=== PATIENT | female | born 1940 | race Caucasian/White ===

== ENCOUNTER 2018-12-07 03:07 | Inpatient (IN) ==
[2018-12-07] MEDS ORDERED: ICU PROTOCOL FOR HYPERGLYCEMIA PRN (04:59)
[2018-12-07] MEDS: NOREPINEPHRINE BIT INJ 8 MG in DEXTROSE 5% 500 ML IV SCH (05:10)
--- NOTE | 2018-12-07 05:21 | History & Physical Report ---
Date of Service December 07, 2018 Assessment & Plan (1) Hypotension: Patient presently on Levophed 5mcg with adequate MAP. ?etiology - sepsis, hypovolemia, medication effects -IVF - NSS at 100mL/hr x 2 liters -Continue Levo -Follow culture results -Empiric antibiotics - Vanc and Aztreonam (PCN allergic) (2) Multifocal pneumonia: Patient presently with improved respiratory status, adequate oxygenation on Oxymask -?infectious vs pulmonary edema (elevated BNP, opiate use) vs aspiration -Vanc and Aztreonam -Nebs -Procalcitonin -Sputum culture Present on Admission?: Yes (3) UTI (urinary tract infection): Positive UA at OSH. Patient denies urinary complaints -Check UA -Empiric antibiotics as above Present on Admission?: Yes (4) Clostridium difficile diarrhea: Stool + c. diff from OSH. Patient denies diarrhea at home -Check c. diff -PO Vancomycin Present on Admission?: Yes (5) COPD (chronic obstructive pulmonary disease): No SOB or wheeze at present. Initially on BiPAP now on Oxymask -Nebs PRN -Smoking cessation counseling Present on Admission?: Yes (6) Chronic pain: Suspect pain medications/sedative effects as underlying reason for depressed respiratory drive and AMS on initial presentation. Patient on TD Fentanyl, Vicodin and Gabapentin for chronic pain -Hold sedating medications for now -Monitor for withdrawal F/E/N - NSS at 100mL/hr, monitor electrolytes and replete as needed, NPO for now Ppx - low risk for DVT Code - DNR/DNI per discussion with patient Dispo - Admit to MICU Present on Admission?: Yes History of Present Illness Chief Complaint: Sepsis Primary Care Provider: Mike Dietz DO Nubia Dolan is a 78yo C female brought into [facility] for respiratory failure and unresponsiveness. Patient with history of gastric bypass, COPD, chronic pain on high doses of opiates. Per report, respiratory rate was 4 and her pupils were pinpoint. She was administered 2mg of Narcan and then 2mg IV with improvement in respiratory rate. Upon arrival to OSH she was tachycardic, initially hemodynamically stable. CT of the chest suggestive of multifocal pneumonia. CT scan of the head was negative. She was found to have a UTI as well as c. diff. Overall patient states she is feeling well. She does not know why she is in the hospital. She denies fevers, chills, SOB, abdominal pain, nausea, vomiting, diarrhea or constipation OSH Course: Lasix 60mg IV with diuresis of 800mL, Xopenex, Prednisolone 125mg, BiPAP with improvement in mental status, Rocephin 2gm and FLagyl, Vancomycin, Aztreonam. Subsequent development of hypotension and started on Levophed. EKG with ST, no acute ischemic changes Labs from OSH H/H=11.5/36.5, WBC=6.9, UA+, MGW=7383, Lactate=4/2 --> 3.4 Allergies Allergy/AdvReac Type Severity Reaction Status Date / Time diphenhydramine Allergy Mild HIVES Verified 08/07/09 04:05 Penicillins Allergy Mild HIVES Verified 08/07/09 04:05 Sulfa (Sulfonamide Allergy Unknown Verified 08/07/09 04:05 Antibiotics) morphine AdvReac Mild HALLUCINATI Verified 08/07/09 04:05 ONS Home Medications Home Medications Medication Instructions Recorded Confirmed Type Calcium (Caltrate) 600 mg PO DAILY #0 12/18/08 History Cyanocobalamin (Vitamin B-12 Inj) IM MONTHLY #0 12/18/08 History Multivitamin 1 tab PO DAILY #0 12/18/08 History Zolpidem Tartrate (Ambien *) 5 mg PO HS #0 12/19/08 History Docusate Sodium (Colace *) 100 mg PO BID #0 12/22/08 History OXYCODONE/ACETAMINOPHEN 5MG/325MG PO DIRECTED #0 12/22/08 History (PERCOCET 5MG/325MG) Past Med/Surg History Medical History COPD (chronic obstructive pulmonary disease) Neuropathy Peripheral vascular disease Tobacco abuse Vitamin B12 deficiency Surgical History History of cholecystectomy History of gastric bypass History of hip surgery Family History Other Diabetes Social History Current Living Situation: Other Other Information That Helps Us Care for You: No Feels Safe at Home: Yes Smoking Status: Current every day smoker Cigarettes Per Day: 20 Hx Alcohol Use: No Hx Substance Use: Yes Review of Systems Review of Systems: All systems reviewed & are unremarkable except as noted in HPI & below Patient complaining of back pain Physical Exam Physical Exam: General: frail, chronically ill appearing elderly female resting comfortably, NAD, non-toxic in appearance, AA&O to self, location and president Skin: warm, dry, multiple skin tears, right forearm, buttock, stage I sacral HEENT: NC/AT, right eye watering and red, patient complaining of something in it, PERRL, EOMI, anicteric sclera, external ear normal to inspection and nonten hima, nares patent, moist mucus membranes, poor dentition, no oropharyngeal lesions, neck supple, trachea midline, no LAD, no thyromegaly, no JVD Heart: +S1/S2, regular, tachycardic, no m/r/g Lungs: equal air entry bilaterally, no rales/rhonchi/wheezes Abd: +BS, soft, NT/ND, no masses/organomegaly/ascites Ext: warm, 2+ pulses in UE/LE bilaterally, no clubbing/cyanosis, 1+ pitting edema of bilateral LE Neuro: nonfocal, patient AA&O x 2, speech intact, no facial droop, moving all extremities on command with equal strength 5/5 Results & Data Vital Signs (Past 12 Hours) Vital Signs Pulse Resp Pulse Ox 12/07/18 05:10 101 H 16 94 Laboratory Results Lab Results 12/07/18 Range/Units 05:55 WBC 1.59 L (4.8-10.8) K/uL RBC 4.22 (4.2-5.4) M/uL Hgb 13.5 (12.0-16.0) g/dL Hct 40.9 (37-47) % MCV 96.9 (80-100) fL MCH 32.0 (25-34) pg MCHC 33.0 (32-36) g/dL RDW Std Deviation 56.3 H (36.4-46.3) fL RDW Coeff of Yudelka 15.9 H (11.5-14.5) % Plt Count 340 (130-400) K/uL MPV 9.3 (7.4-10.4) fL Diagnostic Findings CXR ordered ECG Additional Comments: EKG ordered Code Status & VTE Plan Code Status FULL VTE Prophylaxis Plan VTE Prophylaxis will be ordered: Yes Critical Care Time Critical Care Time: Yes Total Critical Care Time: 45 (1) Hypotension Hypotension type: unspecified hypotension type Qualified Code(s): I95.9 - Hyp otension, unspecified (2) UTI (urinary tract infection) Urinary tract infection type: site unspecified Hematuria presence: without hematuria Qualified Code(s): N39.0 - Urinary tract infection, site not specified (3) COPD (chronic obstructive pulmonary disease) COPD type: unspecified COPD Qualified Code(s): J44.9 - Chronic obstructive pulmonary disease, unspecified
[2018-12-07 06:05] LABS: Hematocrit (blood only) 40.9 % (37-47); Hemoglobin 13.5 g/dL (12.0-16.0); Mean Corpuscular Volume 96.9 fL (80-100); Mean Platelet Volume 9.3 fL (7.4-10.4); Platelet Count 340 K/uL (130-400); RDW Coefficient of Variation 15.9 % (11.5-14.5); RDW Standard Deviation 56.3 fL (36.4-46.3); Red Blood Count 4.22 M/uL (4.2-5.4); White Blood Count 1.59 K/uL (4.8-10.8)
[2018-12-07] MEDS ORDERED: ALBUT/IPRATROP 3MG/0.5MG NEB 3 ML VIAL NEB PRN (06:20)
[2018-12-07] MEDS ORDERED: ALBUTEROL 0.5% NEB SOLN 2.5 MG/0.5 ML VIAL NEB PRN (06:20)
[2018-12-07] MEDS ORDERED: VANCOMYCIN CONSULT ACTIVE PRN (06:20)
[2018-12-07 06:24] LABS: Albumin Level 1.8 gm/dl (3.4-5.0); BUN Creatinine Ratio 25.6 (10-20); Bilirubin Direct 0.2 mg/dl (0-0.2); Calcium 8.4 mg/dl (8.5-10.1); Creatinine Clr Calc Pharmacy 38.9 ml/min; Est GFR (African American) 67.8; Est GFR (Non-African American) 58.5; Magnesium 1.9 mg/dl (1.8-2.4); Potassium 3.2 mmol/L (3.5-5.1)
--- NOTE | 2018-12-07 06:29 | Critical Care Consultation ---
Date of Consultation December 07, 2018 Assessment & Plan (1) Severe sepsis: Reason Critically Ill: Severe sepsis with hypotension and septic shock with community-acquired pneumonia, multifocal pneumonia PLAN: Neuro: DNR/DNI -Patient alert, patient appears to have waxing and waning capacity Resp: Multifocal pneumonia COPD -Solu-Medrol for severe community-acquired pneumonia x5 days CV: Hypotension -Wean vasopressors as able Elevated troponin -Suspect secondary to sepsis Fluids/Renal: Lactic acid acidosis -Thiamine supplementation ID: Severe community-acquired pneumonia Severe sepsis with septic shock -Aztreonam secondary to penicillin allergy -MRSA swab negative discontinue vancomycin -QTC within normal limits azithromycin for atypical coverage GI/Nutrition: N.p.o. Heme: Leukopenia -Suspect secondary to septic process DVT prophylaxis: Heparin 5000 twice daily Endocrine: ICU hyperglycemia protocol Vascular access: Poor vascular access, patient refuses central venous access Code Status: DNR/DNI, also declining advanced vascular access, patient appears to have capacity understands gravity her decisions, understands clinical prognosis, thoughtful and her reasons for declining she does not want heroic measures undertaken. I have personally spent 40 minutes of critical care time in the direct management of this patient. This is a life/limb threatening event. This includes time spent evaluating patient, direct bedside care, chart review, placing orders, interpretation of diagnostic studies, discussion with consultants, patient, and/or family members regarding treatment decisions, as well as other required patient management activities. This time is exclusive of all separately billable procedures, and teaching time and separate from and in addition to any other critical care service time. Present on Admission?: Yes (2) DNR (do not resuscitate): (3) Chronic pain: (4) COPD (chronic obstructive pulmonary disease): (5) Clostridium difficile diarrhea: (6) UTI (urinary tract infection): (7) Multifocal pneumonia: (8) Marijuana dependence: Supervising Physician Co-Signing Physician Notes Dr. Bloom was resident physician during care of patient. I separately evaluated patient for cheung portions of the history and the exam. I was present during the critical portion of medical decision making, and I discussed the case with the resident. I generally agree with the findings and plan. History of Present Illness Attending Physician: Lubna Spencer DO History is obtained from medical records and hospitalist service. Patient is a 78-year-old female who was initially brought [facility] for respiratory f ailure and unresponsiveness. She was administered Narcan and had improvement in her respiratory rate. She was found to have multifocal pneumonia on chest CT. She was considered to be septic secondary to pneumonia from what I am able to ascertain she lives by herself. She was transferred to [facility] for further evaluation and management. She is found to have a lactic acidosis which mildly improved while at [facility] but was still greater than 3. Patient is an active smoker. Marijuana drug screen positive at outside hospital. Allergies Allergy/AdvReac Type Severity Reaction Status Date / Time diphenhydramine Allergy Mild HIVES Verified 08/07/09 04:05 Penicillins Allergy Mild HIVES Verified 08/07/09 04:05 Sulfa (Sulfonamide Allergy Unknown Verified 08/07/09 04:05 Antibiotics) morphine AdvReac Mild HALLUCINATI Verified 08/07/09 04:05 ONS Home Medications Home Medications Medication Instructions Recorded Confirmed Type Calcium (Caltrate) 600 mg PO DAILY #0 12/18/08 History Cyanocobalamin (Vitamin B-12 Inj) IM MONTHLY #0 12/18/08 History Multivitamin 1 tab PO DAILY #0 12/18/08 History Zolpidem Tartrate (Ambien *) 5 mg PO HS #0 12/19/08 History Docusate Sodium (Colace *) 100 mg PO BID #0 12/22/08 History OXYCODONE/ACETAMINOPHEN 5MG/325MG PO DIRECTED #0 12/22/08 History (PERCOCET 5MG/325MG) Patient History Medical History COPD (chronic obstructive pulmonary disease) Neuropathy Peripheral vascular disease Tobacco abuse Vitamin B12 deficiency Surgical History History of cholecystectomy History of gastric bypass History of hip surgery Family History Other Diabetes Social History Communication Ability: Effective Current Living Situation: Other Other Information That Helps Us Care for You: No Feels Safe at Home: Yes Smoking Status: Current every day smoker Cigarettes Per Day: 20 Hx Alcohol Use: No Hx Substance Use: Yes Review of Systems Review of Systems: Unobtainable due to reduced consciousness Physical Exam Constitutional: + cachectic, + frail appearing and + lethargic; + uncomfortable (Increased work of breathing and uncomfortable) Respiratory: + labored breathing and + uses accessory muscles Auscultation: + crackles and + wheezes Cardiovascular: Rate/Rhythm: regular rate and regular rhythm Heart Sounds: no click, no gallop, no murmur and no cardiac rub Gastrointestinal (Abdomen): Percussion/Palpation: abdomen soft; abdomen nontender Results & Data Vital Signs (Past 12 Hours) Vital Signs Temp Pulse Pulse Resp BP Pulse Ox 12/07/18 05:56 36.7 C 101 H 14 95/51 L 96 12/07/18 05:10 101 H 16 94 Laboratory Results 12/07/18 12/07/18 12/07/18 Range/Units 18:40 18:27 17:05 WBC (4.8-10.8) K/uL RBC (4.2-5.4) M/uL Hgb (12.0-16.0) g/dL Hct (37-47) % MCV (80-100) fL MCH (25-34) pg MCHC (32-36) g/dL RDW Std Deviation (36.4-46.3) fL RDW Coeff of Yudelka (11.5-14.5) % Plt Count (130-400) K/uL MPV (7.4-10.4) fL Immature Gran % (Auto) % Neut % (Auto) % Lymph % (Auto) % [place] % (Auto) % Eos % (Auto) % Baso % (Auto) % Immature Gran # (Auto) (0.00-0.02) K/uL Neut # (Auto) (1.4-6.5) K/uL Lymph # (Auto) (1.2-3.4) K/uL [place] # (Auto) (0.11-0.59) K/uL Eos # (Auto) (0-0.5) K/uL Baso # (Auto) (0-0.2) K/uL Toxic Vacuolation PT (9.0-12.0) Seconds INR (0.9-1.1) Sodium (136-145) mmol/L Potassium (3.5-5.1) mmol/L Chloride (98-107) mmol/L Carbon Dioxide (21-32) mmol/L Anion Gap (3-11) BUN (7-18) mg/dl Creatinine (0.6-1.2) mg/dl Est Cr Clr Drug Dosing ml/min Est GFR ( Amer) Est GFR (Non-Af Amer) BUN/Creatinine Ratio (10-20) Glucose (70-99) mg/dl POC Glucose 133 H (70-99) Lactate 3.0 H* (0.4-2.0) mmol/L Calcium (8.5-10.1) mg/dl Phosphorus (2.5-4.9) mg/dl Magnesium (1.8-2.4) mg/dl Total Bilirubin (0.2-1) mg/dl Direct Bilirubin (0-0.2) mg/dl AST (15-37) U/L ALT (12-78) U/L Alkaline Phosphatase (45-117) U/L Troponin I (0-0.045) ng/ml Total Protein (6.4-8.2) gm/dl Albumin (3.4-5.0) gm/dl Lipase (73-393) U/L Procalcitonin (0-0.5) ng/ml Random Cortisol mcg/dl Urine Color Urine Appearance (Clear) Urine pH (4.5-7.5) Ur Specific [place] (1.000-1.030) Urine Protein (Negative) Urine Glucose (UA) (Negative) Urine Ketones (Negative) Urine Blood (Negative) Urine Nitrite (Negative) Urine Bilirubin (Negative) Urine Urobilinogen (Negative) Ur Leukocyte Esterase (Negative) Urine WBC (Auto) (0-5) /hpf Urine RBC (Auto) (0-4) /hpf U Hyaline Cast (Auto) (0-5) /lpf U Epithel Cells (Auto) (0-5) /lpf Urine Bacteria (Auto) (Negative) Nasal Screen MRSA (PCR) (Negative) Stl C. diff Tox B Gene Positive Cdiff Gene H (Neg) Stl C.difficile Tox A&B Negative Cdiff Toxin (Negative) 12/07/18 12/07/18 12/07/18 Range/Units 16:59 12:52 09:36 WBC (4.8-10.8) K/uL RBC (4.2-5.4) M/uL Hgb (12.0-16.0) g/dL Hct (37-47) % MCV (80-100) fL MCH (25-34) pg MCHC (32-36) g/dL RDW Std Deviation (36.4-46.3) fL RDW Coeff of Yudelka (11.5-14.5) % Plt Count (130-400) K/uL MPV (7.4-10.4) fL Immature Gran % (Auto) % Neut % (Auto) % Lymph % (Auto) % [place] % (Auto) % Eos % (Auto) % Baso % (Auto) % Immature Gran # (Auto) (0.00-0.02) K/uL Neut # (Auto) (1.4-6.5) K/uL Lymph # (Auto) (1.2-3.4) K/uL [place] # (Auto) (0.11-0.59) K/uL Eos # (Auto) (0-0.5) K/uL Baso # (Auto) (0-0.2) K/uL Toxic Vacuolation PT 12.1 H (9.0-12.0) Seconds INR 1.2 H (0.9-1.1) Sodium (136-145) mmol/L Potassium (3.5-5.1) mmol/L Chloride (98-107) mmol/L Carbon Dioxide (21-32) mmol/L Anion Gap (3-11) BUN (7-18) mg/dl Creatinine (0.6-1.2) mg/dl Est Cr Clr Drug Dosing ml/min Est GFR ( Amer) Est GFR (Non-Af Amer) BUN/Creatinine Ratio (10-20) Glucose (70-99) mg/dl POC Glucose (70-99) Lactate 3.2 H* (0.4-2.0) mmol/L Calcium (8.5-10.1) mg/dl Phosphorus (2.5-4.9) mg/dl Magnesium (1.8-2.4) mg/dl Total Bilirubin (0.2-1) mg/dl Direct Bilirubin (0-0.2) mg/dl AST (15-37) U/L ALT (12-78) U/L Alkaline Phosphatase (45-117) U/L Troponin I 0.058 H* (0-0.045) ng/ml Total Protein (6.4-8.2) gm/dl Albumin (3.4-5.0) gm/dl Lipase (73-393) U/L Procalcitonin (0-0.5) ng/ml Random Cortisol mcg/dl Urine Color Urine Appearance (Clear) Urine pH (4.5-7.5) Ur Specific [place] (1.000-1.030) Urine Protein (Negative) Urine Glucose (UA) (Negative) Urine Ketones (Negative) Urine Blood (Negative) Urine Nitrite (Negative) Urine Bilirubin (Negative) Urine Urobilinogen (Negative) Ur Leukocyte Esterase (Negative) Urine WBC (Auto) (0-5) /hpf Urine RBC (Auto) (0-4) /hpf U Hyaline Cast (Auto) (0-5) /lpf U Epithel Cells (Auto) (0-5) /lpf Urine Bacteria (Auto) (Negative) Nasal Screen MRSA (PCR) (Negative) Stl C. diff Tox B Gene (Neg) Stl C.difficile Tox A&B (Negative) 12/07/18 12/07/18 12/07/18 Range/Units 09:36 09:36 08:55 WBC (4.8-10.8) K/uL RBC (4.2-5.4) M/uL Hgb (12.0-16.0) g/dL Hct (37-47) % MCV (80-100) fL MCH (25-34) pg MCHC (32-36) g/dL RDW Std Deviation (36.4-46.3) fL RDW Coeff of Yudelka (11.5-14.5) % Plt Count (130-400) K/uL MPV (7.4-10.4) fL Immature Gran % (Auto) % Neut % (Auto) % Lymph % (Auto) % [place] % (Auto) % Eos % (Auto) % Baso % (Auto) % Immature Gran # (Auto) (0.00-0.02) K/uL Neut # (Auto) (1.4-6.5) K/uL Lymph # (Auto) (1.2-3.4) K/uL [place] # (Auto) (0.11-0.59) K/uL Eos # (Auto) (0-0.5) K/uL Baso # (Auto) (0-0.2) K/uL Toxic Vacuolation PT (9.0-12.0) Seconds INR (0.9-1.1) Sodium (136-145) mmol/L Potassium (3.5-5.1) mmol/L Chloride (98-107) mmol/L Carbon Dioxide (21-32) mmol/L Anion Gap (3-11) BUN (7-18) mg/dl Creatinine (0.6-1.2) mg/dl Est Cr Clr Drug Dosing ml/min Est GFR ( Amer) Est GFR (Non-Af Amer) BUN/Creatinine Ratio (10-20) Glucose (70-99) mg/dl POC Glucose (70-99) Lactate (0.4-2.0) mmol/L Calcium (8.5-10.1) mg/dl Phosphorus (2.5-4.9) mg/dl Magnesium (1.8-2.4) mg/dl Total Bilirubin (0.2-1) mg/dl Direct Bilirubin (0-0.2) mg/dl AST (15-37) U/L ALT (12-78) U/L Alkaline Phosphatase (45-117) U/L Troponin I (0-0.045) ng/ml Total Protein (6.4-8.2) gm/dl Albumin (3.4-5.0) gm/dl Lipase (73-393) U/L Procalcitonin 9.15 H (0-0.5) ng/ml Random Cortisol 86.72 mcg/dl Urine Color Dark Yellow Urine Appearance Clear (Clear) Urine pH 5.0 (4.5-7.5) Ur Specific [place] > 1.045 H (1.000-1.030) Urine Protein Negative (Negative) Urine Glucose (UA) Negative (Negative) Urine Ketones Negative (Negative) Urine Blood Trace H (Negative) Urine Nitrite Negative (Negative) Urine Bilirubin Negative (Negative) Urine Urobilinogen Negative (Negative) Ur Leukocyte Esterase Negative (Negative) Urine WBC (Auto) 1-5 (0-5) /hpf Urine RBC (Auto) 10-30 H (0-4) /hpf U Hyaline Cast (Auto) 1-5 (0-5) /lpf U Epithel Cells (Auto) 20-30 H (0-5) /lpf Urine Bacteria (Auto) Negative (Negative) Nasal Screen MRSA (PCR) (Negative) Stl C. diff Tox B Gene (Neg) Stl C.difficile Tox A&B (Negative) 12/07/18 12/07/18 12/07/18 Range/Units 07:38 05:55 05:55 WBC (4.8-10.8) K/uL RBC (4.2-5.4) M/uL Hgb (12.0-16.0) g/dL Hct (37-47) % MCV (80-100) fL MCH (25-34) pg MCHC (32-36) g/dL RDW Std Deviation (36.4-46.3) fL RDW Coeff of Yudelka (11.5-14.5) % Plt Count (130-400) K/uL MPV (7.4-10.4) fL Immature Gran % (Auto) % Neut % (Auto) % Lymph % (Auto) % [place] % (Auto) % Eos % (Auto) % Baso % (Auto) % Immature Gran # (Auto) (0.00-0.02) K/uL Neut # (Auto) (1.4-6.5) K/uL Lymph # (Auto) (1.2-3.4) K/uL [place] # (Auto) (0.11-0.59) K/uL Eos # (Auto) (0-0.5) K/uL Baso # (Auto) (0-0.2) K/uL Toxic Vacuolation PT (9.0-12.0) Seconds INR (0.9-1.1) Sodium 140 (136-145) mmol/L Potassium 3.2 L (3.5-5.1) mmol/L Chloride 103 (98-107) mmol/L Carbon Dioxide 26 (21-32) mmol/L Anion Gap 11.0 (3-11) BUN 24 H (7-18) mg/dl Creatinine 0.94 (0.6-1.2) mg/dl Est Cr Clr Drug Dosing 38.9 ml/min Est GFR ( Amer) 67.8 Est GFR (Non-Af Amer) 58.5 BUN/Creatinine Ratio 25.6 H (10-20) Glucose 145 H (70-99) mg/dl POC Glucose 124 H (70-99) Lactate 5.3 H* (0.4-2.0) mmol/L Calcium 8.4 L (8.5-10.1) mg/dl Phosphorus 3.8 (2.5-4.9) mg/dl Magnesium 1.9 (1.8-2.4) mg/dl Total Bilirubin 0.4 (0.2-1) mg/dl Direct Bilirubin 0.2 (0-0.2) mg/dl AST 16 (15-37) U/L ALT 10 L (12-78) U/L Alkaline Phosphatase 100 (45-117) U/L Troponin I 0.088 H* (0-0.045) ng/ml Total Protein 6.4 (6.4-8.2) gm/dl Albumin 1.8 L (3.4-5.0) gm/dl Lipase 42 L (73-393) U/L Procalcitonin (0-0.5) ng/ml Random Cortisol mcg/dl Urine Color Urine Appearance (Clear) Urine pH (4.5-7.5) Ur Specific [place] (1.000-1.030) Urine Protein (Negative) Urine Glucose (UA) (Negative) Urine Ketones (Negative) Urine Blood (Negative) Urine Nitrite (Negative) Urine Bilirubin (Negative) Urine Urobilinogen (Negative) Ur Leukocyte Esterase (Negative) Urine WBC (Auto) (0-5) /hpf Urine RBC (Auto) (0-4) /hpf U Hyaline Cast (Auto) (0-5) /lpf U Epithel Cells (Auto) (0-5) /lpf Urine Bacteria (Auto) (Negative) Nasal Screen MRSA (PCR) (Negative) Stl C. diff Tox B Gene (Neg) Stl C.difficile Tox A&B (Negative) 12/07/18 12/07/18 Range/Units 05:55 05:15 WBC 1.59 L (4.8-10.8) K/uL RBC 4.22 (4.2-5.4) M/uL Hgb 13.5 (12.0-16.0) g/dL Hct 40.9 (37-47) % MCV 96.9 (80-100) fL MCH 32.0 (25-34) pg MCHC 33.0 (32-36) g/dL RDW Std Deviation 56.3 H (36.4-46.3) fL RDW Coeff of Yudelka 15.9 H (11.5-14.5) % Plt Count 340 (130-400) K/uL MPV 9.3 (7.4-10.4) fL Immature Gran % (Auto) 0.6 % Neut % (Auto) 74.9 % Lymph % (Auto) 17.6 % [place] % (Auto) 6.3 % Eos % (Auto) 0.0 % Baso % (Auto) 0.6 % Immature Gran # (Auto) 0.01 (0.00-0.02) K/uL Neut # (Auto) 1.19 L (1.4-6.5) K/uL Lymph # (Auto) 0.28 L (1.2-3.4) K/uL [place] # (Auto) 0.10 L (0.11-0.59) K/uL Eos # (Auto) 0.00 (0-0.5) K/uL Baso # (Auto) 0.01 (0-0.2) K/uL Toxic Vacuolation 1+ PT (9.0-12.0) Seconds INR (0.9-1.1) Sodium (136-145) mmol/L Potassium (3.5-5.1) mmol/L Chloride (98-107) mmol/L Carbon Dioxide (21-32) mmol/L Anion Gap (3-11) BUN (7-18) mg/dl Creatinine (0.6-1.2) mg/dl Est Cr Clr Drug Dosing ml/min Est GFR ( Amer) Est GFR (Non-Af Amer) BUN/Creatinine Ratio (10-20) Glucose (70-99) mg/dl POC Glucose (70-99) Lactate (0.4-2.0) mmol/L Calcium (8.5-10.1) mg/dl Phosphorus (2.5-4.9) mg/dl Magnesium (1.8-2.4) mg/dl Total Bilirubin (0.2-1) mg/dl Direct Bilirubin (0-0.2) mg/dl AST (15-37) U/L ALT (12-78) U/L Alkaline Phosphatase (45-117) U/L Troponin I (0-0.045) ng/ml Total Protein (6.4-8.2) gm/dl Albumin (3.4-5.0) gm/dl Lipase (73-393) U/L Procalcitonin (0-0.5) ng/ml Random Cortisol mcg/dl Urine Color Urine Appearance (Clear) Urine pH (4.5-7.5) Ur Specific [place] (1.000-1.030) Urine Protein (Negative) Urine Glucose (UA) (Negative) Urine Ketones (Negative) Urine Blood (Negative) Urine Nitrite (Negative) Urine Bilirubin (Negative) Urine Urobilinogen (Negative) Ur Leukocyte Esterase (Negative) Urine WBC (Auto) (0-5) /hpf Urine RBC (Auto) (0-4) /hpf U Hyaline Cast (Auto) (0-5) /lpf U Epithel Cells (Auto) (0-5) /lpf Urine Bacteria (Auto) (Negative) Nasal Screen MRSA (PCR) Negative (Negative) Stl C. diff Tox B Gene (Neg) Stl C.difficile Tox A&B (Negative) Critical Care Time Critical Care Time: Yes Total Critical Care Time: 40 (1) UTI (urinary tract infection) Hematuria presence: without hematuria Urinary tract infection type: site unspecified Qualified Code(s): N39.0 - Urinary tract infection, site not specified (2) COPD (chronic obstructive pulmonary disease) COPD type: unspecified COPD Qualified Code(s): J44.9 - Chronic obstructive pulmonary disease, unspecified
[2018-12-07] MEDS ORDERED: VANCOMYCIN HCL 1,000 MG in SODIUM CHLORIDE 0.9% 250 ML IV SCH (06:30)
[2018-12-07] MEDS ORDERED: SODIUM CHLORIDE 0.9% 1000ML 1,000 ML IV SCH (06:30)
[2018-12-07 06:36] LABS: Bilirubin,Total 0.4 mg/dl (0.2-1); Phosphorus 3.8 mg/dl (2.5-4.9); Total Protein 6.4 gm/dl (6.4-8.2); Troponin I 0.088 ng/ml (0-0.045)
[2018-12-07] MEDS ORDERED: VANCOMYCIN HCL 1,250 MG in SODIUM CHLORIDE 0.9% 250 ML IV SCH (06:45)
[2018-12-07] MEDS ORDERED: POTASSIUM CHLORIDE 10 MEQ TABCR PO STA (06:47)
[2018-12-07 07:03] LABS: Basophils # (auto) 0.01 K/uL (0-0.2); Basophils % (auto) 0.6 %; Immature Granulocytes # (auto) 0.01 K/uL (0.00-0.02); Immature Granulocytes % (auto) 0.6 %; Lymphocytes # (auto) 0.28 K/uL (1.2-3.4); Lymphocytes % (auto) 17.6 %; Monocytes % (auto) 6.3 %; Neutrophils # (auto) 1.19 K/uL (1.4-6.5); Neutrophils % (auto) 74.9 %; Toxic Vacuolation 1+
[2018-12-07] MEDS: AZTREONAM 1,000 MG in DEXTROSE 5% 100 ML IV SCH ×2 (07:26→14:31)
[2018-12-07] MEDS: RASPBERRY SYRUP 5 ML UDP PO SCH ×2 (07:27→11:00)
[2018-12-07] MEDS: VANCOMYCIN HCL 125 MG/2.5ML SOLN PO SCH ×2 (07:27→11:00)
[2018-12-07] MEDS ORDERED: THIAMINE HCL 100 MG in SYRINGE 9 ML IV SCH (09:00)
[2018-12-07 09:41] LABS: Appearance Urine Clear (Clear); Bacteria Urine Automated Negative (Negative); Bilirubin Urine Negative (Negative); Blood Urine Trace (Negative); Color Urine Dark Yellow; Epithelial Cell Urine Auto 20-30 /lpf (0-5); Glucose Urine UA Negative (Negative); Ketones Urine Negative (Negative); Leukocyte Esterase Urine Negative (Negative); Nitrite Urine Negative (Negative); Protein Urine Negative (Negative); Specific Gravity Urine > 1.045 (1.000-1.030); Urobilinogen Urine Negative (Negative)
[2018-12-07] MEDS: NORMOSOL-R 1,000 ML IV SCH ×2 (09:43→23:24)
[2018-12-07] MEDS: ALBUMIN 25% 50 ML IV SCH ×2 (09:44→10:02)
--- NOTE | 2018-12-07 09:56 | XRay Report ---
XR chest 1V portable HISTORY: pneumonia COMPARISON: Chest 529. FINDINGS: No pneumothorax. No pleural effusions. The heart is top normal in size. Bilateral perihilar airspace opacities and diffuse interstitial thickening. IMPRESSION: Bilateral perihilar airspace opacities and diffuse interstitial thickening. This could represent mult ifocal pneumonia or developing pulmonary edema. Electronically signed by: Alberto Adrian M.D. 12/07/2018 9:55 AM
[2018-12-07] MEDS ORDERED: VANCOMYCIN HCL 125 MG/2.5ML SOLN PO SCH (12:00)
[2018-12-07] MEDS ORDERED: RASPBERRY SYRUP 5 ML UDP PO SCH (12:00)
[2018-12-07] MEDS ORDERED: AZTREONAM 2,000 MG in DEXTROSE 5% 100 ML IV SCH (15:30)
[2018-12-07] MEDS ORDERED: AZTREONAM 1,000 MG in DEXTROSE 5% 100 ML IV STA (15:31)
[2018-12-07] MEDS ORDERED: AZITHROMYCIN 500 MG in DEXTROSE 5% 250 ML IV STA (15:49)
[2018-12-07] MEDS ORDERED: AZTREONAM CONSULT ACTIVE PRN (16:03)
[2018-12-07 17:27] LABS: INR 1.2 (0.9-1.1); Prothrombin Time 12.1 Seconds (9.0-12.0)
--- NOTE | 2018-12-07 18:10 | History & Physical Bridge Note ---
Date of Service December 07, 2018 History & Physical Bridge Note I have examined the patient, reviewed the History & Physical and in the interval since the performance of the History & Physical I have noted the following changes of clinical significance: Patient admitted this morning with sepsis and pneumonia, is hypotensive and remains on norepinephrine. She has a productive cough and is coughing up thick yellow-brown sputum as well as some pink liquid which looks like the raspberry syrup of her oral vancomycin. No bowel movements here all day long. She thinks she is in [place], but does know the month and year. When asked if she would be agreeable to a central venous catheter for pressor support to continue, she was angry about having to get stuck with more needles. Labs with leukopenia with white count 1.5, potassium 3.2, troponin 0 0.088, lactate 5.3 and then improved to 3 -Vitals reviewed Patient is cachectic, appears much older than stated age Frequent weak productive cough Lungs with diffuse rhonchi and wheezes Regular rate and rhythm, no murmurs gallops rubs Abdomen positive bowel sounds soft nontender nondistended Extremities trace pitting edema and multiple scattered ecchymoses 78-year-old female here with multifocal pneumonia, UTI, C. difficile colitis, and sepsis with shock. -Appreciate metal pourer care -Continue antibiotics with aztreonam and azithromycin, vancomycin was discontinued as her MRSA swab is negative -Continue oral vancomycin for C. difficile -Place central venous catheter for continued pressor support -Continue Normosol at 75 mL's per hour -Continue IV steroids for history of COPD -Continue nebulizer treatments DVT prophylaxis with heparin Disposition-remain in ICU DNR/DNI
[2018-12-07 20:25] LABS: Cdiff Antigen Positive; Cdiff Toxin A+B Negative Cdiff Toxin (Negative)
[2018-12-07] MEDS: methylPREDNISolone 25 MG in SYRINGE 0 ML IV SCH (21:31)
[2018-12-07] MEDS: HEPARIN SOD 5,000 UNIT/0.5 ML VIAL SQ SCH (21:32)
[2018-12-07] MEDS: THIAMINE HCL 300 MG in SODIUM CHLORIDE 0.9% 50 ML IV SCH (21:32)
--- NOTE | 2018-12-07 22:27 | Procedure Note ---
Procedure Note Date of Service December 07, 2018 Procedure date: Noted above Procedure: Central venous access Pre-procedure indication: Need for vasoactive medication administration Post-procedure Diagnosis: same as above Prior to Procedure: Informed Consent: We attempted to consent the patient however she was unable to adequately teach back, stated she was unsure of going on. We attempted to contact family. Patient still desires care, she has had continuous high-dose vasoactive medication administration running through peripheral IV at this point I feel it is emergent and prudent to proceed with central venous access for continuous vasoactive medication administration. Patient did verbally sent to procedure. She would not sign consent. Attending Staff: Lissette Aranda DO Resident/APC: Merle Skin Prep: Chlorhexidine Anesthesia: 4 mL 1% lidocaine without epinephrine The identity of the patient was confirmed and a bedside time out was performed. Description of Procedure: After sterile prep and sterile drape utilizing standard sterile technique the superficial skin of the left IJ area was anesthetized. The target vessel was identified and entered with an 18-gauge needle. Dark venous blood return was noted. A guidewire was inserted through the needle and into the vessel. The needle was withdrawn and a skin alison was made. A tissue dilator was advanced via Seldinger technique and removed. A triple lumen catheter was inserted via Seldinger technique and the guidewire removed. All ports kathy and flushed easily. A Biopatch was placed, and the catheter was secured via silk suture. A sterile dressing was then applied. Complications: None Estimated blood loss: Trace Patient tolerated the procedure well. Procedure Date: Noted Above Procedure: Procedural Ultrasound Indication: Central venous access Attending: Lissette Aranda DO Resident/Physician Quality Control Specialist: Merle Artery visualized: Yes Vein visualized: Yes Compressible Vein: Yes Vein patent: Yes Guidewire or Short Catheter seen in vein prior to dilation: Yes Line confirmed in Vein with ultrasound: Yes Lung Sliding on side of attempt (if applicable): NA If no lung sliding or not obtained has CXR been ordered: Yes Impression: Successful central venous access placement Images obtained are saved for permanent record Coding CPT Codes Tubes, Drains, and Vasc Access - Tubes, Drains, and Vasc Access: Insertion Of Non-tunneled Catheter Age 5 Yrs> ([id number]) Tubes, Drains, and Vasc Access - Tubes, Drains, and Vasc Access: Ultrasound Guidance For Vascular ([id number])
--- NOTE | 2018-12-07 22:40 | XRay Report ---
XR chest 1V portable HISTORY: 78 years-old Female lines status post placement of a left internal jugular central venous c atheter COMPARISON: Chest radiograph of same day at 9:45 AM TECHNIQUE: Portable AP view of the chest FINDINGS: Cardiomediastinal and hilar silhouettes appear unchanged. Status post placement of a left internal ju gular central venous catheter, distal tip terminating in the expected location of the proximal SVC. N o postprocedural pneumothorax. Calcification of the thoracic aortic arch. No pneumothorax. Trace pleu ral effusions. Multifocal bilateral mixed interstitial and alveolar opacities are redemonstrated with progression of the upper lung zones and right lung base densities. Degenerative changes of the shoul ders and spine. IMPRESSION: 1. Status post placement of a left internal jugular central venous catheter, distal tip terminating i n the expected location of the proximal SVC. No postprocedural pneumothorax identified. 2. Progressively worsened bilateral mixed interstitial and alveolar opacities. Multifocal pneumonia a nd/or pulmonary edema considered. 3. Trace pleural effusions. The above report was generated using voice recognition software. It may contain grammatical, syntax o r spelling errors. Electronically signed by: Franck Palomo M.D. 12/07/2018 10:39 PM
[2018-12-07] MEDS: AZTREONAM 2,000 MG in DEXTROSE 5% 100 ML IV SCH (23:56)
[2018-12-08 05:06] LABS: Hemoglobin 9.9 g/dL (12.0-16.0); Mean Corpuscular Hgb Conc 34.1 g/dL (32-36); Mean Corpuscular Volume 95.7 fL (80-100); Mean Platelet Volume 8.9 fL (7.4-10.4); Platelet Count 310 K/uL (130-400); RDW Coefficient of Variation 16.4 % (11.5-14.5); Red Blood Count 3.03 M/uL (4.2-5.4); White Blood Count 10.57 K/uL (4.8-10.8)
[2018-12-08 05:09] LABS: INR 1.2 (0.9-1.1); Prothrombin Time 11.7 Seconds (9.0-12.0)
[2018-12-08 05:31] LABS: Basophils # (auto) 0.01 K/uL (0-0.2); Basophils % (auto) 0.1 %; Dohle Bodies 2+; Immature Granulocytes # (auto) 0.71 K/uL (0.00-0.02); Immature Granulocytes % (auto) 6.7 %; Lymphocytes # (auto) 0.43 K/uL (1.2-3.4); Lymphocytes % (auto) 4.1 %; Monocytes # (auto) 0.22 K/uL (0.11-0.59); Monocytes % (auto) 2.1 %; Toxic Vacuolation 1+
--- NOTE | 2018-12-08 05:43 | Critical Care Progress Note ---
Date of Service December 08, 2018 Assessment & Plan (1) Severe sepsis: Reason Critically Ill: Severe sepsis with hypotension and septic shock with community-acquired pneumonia, multifocal pneumonia PLAN: Neuro: CAM ICU: Negative DNR/DNI -Patient alert, but very tired. - No change in mental status Resp: Multifocal pneumonia Aztreonam and azithromycin COPD -Solu-Medrol for severe community-acquired pneumonia x5 days CV: Hypotension -Wean vasopressors as able Currently on .01 mcg/kg/min Elevated troponin -Suspect secondary to sepsis Fluids/Renal: Lactic acid acidosis -Thiamine supplementation ID: Severe community-acquired pneumonia Severe sepsis with septic shock -Aztreonam secondary to penicillin allergy -MRSA swab negative discontinue vancomycin -QTC within normal limits azithromycin for atypical coverage GI/Nutrition: N.p.o. Heme: Leukopenia -Suspect secondary to septic process DVT prophylaxis: Heparin 5000 twice daily Endocrine: ICU hyperglycemia protocol Vascular access: Poor vascular access, patient refuses central venous access Code Status: DNR/DNI, also declining advanced vascular access, patient appears to have capacity understands gravity her decisions, understands clinical prognosis, thoughtful and her reasons for declining she does not want heroic measures undertaken. I have personally spent 30 minutes of critical care time in the direct management of this patient. This is a life/limb threatening event. This includes time spent evaluating patient, direct bedside care, chart review, placing orders, interpretation of diagnostic studies, discussion with consultants, patient, and/or family members regarding treatment decisions, as well as other required patient management activities. This time is exclusive of all separately billable procedures, and teaching time and separate from and in addition to any other critical care service time. Supervising Physician Co-Signing Physician Notes Dr. Bloom was resident physician during care of patient. I separately evaluated patient for cheung portions of the history and the exam. I was present during the critical portion of medical decision making, and I discussed the case with the resident. I generally agree with the findings and plan. Patient still requiring vasoactive medication for septic shock/sepsis associated hypotension. Patient remains critically ill Subjective Nubia Dolan resting rather uncomfortable in bed today. She says she is doing okay but just wants to sleep. On O2 mask but not endorsing any shortness of breath. Review of Systems Constitutional: no fever and no chills Respiratory: no cough and no dyspnea Cardiovascular: no chest pain, no dyspnea and no palpitations Gastrointestinal: no abdominal pain, no nausea and no vomiting Physical Exam Constitutional: + cachectic, + frail appearing and + lethargic; + unco mfortable (Increased work of breathing and uncomfortable) Respiratory: + labored breathing and + uses accessory muscles Auscultation: + crackles and + wheezes Cardiovascular: Rate/Rhythm: regular rate and regular rhythm Heart Sounds: no click, no gallop, no murmur and no cardiac rub Gastrointestinal (Abdomen): Percussion/Palpation: abdomen soft; abdomen nontender Results & Data Vital Signs (Past 12 Hours) Vital Signs Pulse Resp BP Pulse Ox 12/07/18 19:00 97 H 18 87/53 L 98 12/07/18 18:45 101 H 19 88/53 L 98 12/07/18 18:31 108 H 21 99/45 L 99 12/07/18 18:30 100 H 20 99 12/07/18 18:15 103 H 19 92/56 L 98 12/07/18 18:00 105 H 20 106/60 98 12/07/18 17:45 97 H 13 90/50 L 98 Critical Care Time Critical Care Time: Yes Total Critical Care Time: 30
[2018-12-08 05:47] LABS: Albumin Level 1.8 gm/dl (3.4-5.0); Bilirubin Direct 0.2 mg/dl (0-0.2); Bilirubin,Total 0.4 mg/dl (0.2-1); Magnesium 2.1 mg/dl (1.8-2.4); Phosphorus 1.7 mg/dl (2.5-4.9); Total Protein 5.6 gm/dl (6.4-8.2)
[2018-12-08] MEDS: AZTREONAM 2,000 MG in DEXTROSE 5% 100 ML IV SCH ×2 (07:58→16:05)
[2018-12-08 09:03] LABS: BUN Creatinine Ratio 58.2 (10-20); Calcium 8.6 mg/dl (8.5-10.1); Creatinine Clr Calc Pharmacy 104.8 ml/min; Est GFR (African American) 122.8; Potassium 3.8 mmol/L (3.5-5.1)
[2018-12-08] MEDS: HEPARIN SOD 5,000 UNIT/0.5 ML VIAL SQ SCH ×2 (09:20→20:39)
[2018-12-08] MEDS: methylPREDNISolone 25 MG in SYRINGE 0 ML IV SCH ×2 (09:22→20:40)
[2018-12-08] MEDS: NOREPINEPHRINE BIT INJ 8 MG in DEXTROSE 5% 500 ML IV SCH (09:22)
[2018-12-08] MEDS: THIAMINE HCL 300 MG in SODIUM CHLORIDE 0.9% 50 ML IV SCH ×2 (09:22→14:48)
[2018-12-08] MEDS ORDERED: POTASSIUM PHOS 3 MMOL/1 ML INFUSION IV STA (12:56)
[2018-12-08] MEDS ORDERED: POTASSIUM PHOSPHATE 15 MMOL in SODIUM CHLORIDE 0.9% 250 ML IV ONE (13:15)
[2018-12-08] MEDS: NORMOSOL-R 1,000 ML IV SCH (13:36)
--- NOTE | 2018-12-08 14:51 | Hospitalist Progress Note ---
Date of Service December 08, 2018 Assessment & Plan (1) Septic shock: due to multifocal pneumonia, present on admission aggressive hydration and now on low dose Levophed, likely tapered off by tomorrow urine output starting to slate picker with pressor support last evening lactate was down to 2.1 continue in ICU since she is requiring Levophed blood and sputum cultures with no growth (2) Multifocal pneumonia: Patient presently with improved respiratory status, adequate oxygenation on Oxymask continue Aztreonam due to allergies, Vancomycin was stopped since she was MRSA negative Azithromycin for atypical coverage Solu Medrol x 5 days for severe CAP (3) UTI (urinary tract infection): Positive UA at OSH. Patient denies urinary complaints UA with minimal WBC, doubt infection (4) Clostridium difficile diarrhea: Stool + c. diff from OSH. Patient denies diarrhea at home + for the gene but negative for toxin, Vanco PO stopped (5) COPD (chronic obstructive pulmonary disease): No SOB or wheeze at present. Initially on BiPAP now on Oxymask -Nebs PRN -Smoking cessation counseling Solu Medrol for the pneumonia (6) Chronic pain: Suspect pain medications/sedative effects as underlying reason for depressed respiratory drive and AMS on initial presentation. Patient on TD Fentanyl, Vicodin and Gabapentin for chronic pain -Hold sedating medications for now -Monitor for withdrawal F/E/N - NSS at 100mL/hr, monitor electrolytes and replete as needed, NPO for now Ppx - low risk for DVT Code - DNR/DNI per discussion with patient Subjective patient seen and examined this afternoon resting comfortably, c/o cough, productive of yellow sputum denies dyspnea, denies chest pain reports that she has no appetite reviewed chart since admission, presented with septic shock due to pneumonia had left IJ central line placed, BP stable on very low dose of Levophed discussed with Dr. Aranda, appreciate his recommendations and management reviewed labs, WBC normal, Cr stable, electrolytes stable Review of Systems Review of Systems: All systems reviewed & are unremarkable except as noted in HPI & below Constitutional: + fatigue and + weakness; no fever, no chills and no sweats Respiratory: + cough and + sputum production; no dyspnea, no pain with cough and no wheezing Cardiovascular: no chest pain and no edema Gastrointestinal: no abdominal pain, no nausea, no vomiting, no constipation and no diarrhea/loose stools Physical Exam Constitutional: well developed and + thin; no acute distress Eyes: PERRL, conjunctivae normal, anicteric sclerae ENMT: external ear and nose normal, oropharynx normal Neck: trachea midline, no thyromegaly Respiratory: normal respiratory effort; no respiratory distress and no labored breathing Auscultation: + crackles (bilaterally); no rhonchi and no wheezes Cardiovascular: Rate/Rhythm: regular rhythm and + tachycardic Heart Sounds: normal S1 and normal S2; no murmur Vessels: no JVD Extremities: normal capillary refill; no edema Gastrointestinal (Abdomen): normal bowel sounds, soft, nontender, no hepatosplenomegaly Musculoskeletal: no cyanosis or clubbing, extremities motor strength 5/5 Skin: no rashes, warm and dry Neurologic: patellar DTR's 2+ bilat, sensation intact and PERRL, EOMI, accommodation nl, no face palsy, no dysarthria Psychiatric: A+Ox3, euthymic affect Lymphatic: no cervical or axillary lymphadenopathy Results & Data Vital Signs (Past 12 Hours) Vital Signs Temp Pulse Resp BP Pulse Ox 12/08/18 12:00 37.2 C 104 H 24 101/57 L 93 12/08/18 11:45 101 H 23 90/55 L 94 12/08/18 11:30 100 H 21 95/54 L 94 12/08/18 11:16 103 H 28 H 91/55 L 93 12/08/18 11:00 98 H 18 102/62 97 12/08/18 10:45 104 H 22 105/62 96 12/08/18 10:30 100 H 18 99/59 L 95 12/08/18 10:15 102 H 20 107/57 L 100 12/08/18 10:00 101 H 19 99/60 L 96 12/08/18 09:45 104 H 18 96/57 L 97 12/08/18 09:30 94 H 27 H 103/59 L 97 12/08/18 09:15 99 H 28 H 101/59 L 96 12/08/18 09:00 101 H 24 107/61 96 12/08/18 08:45 96 H 17 109/63 100 12/08/18 08:30 97 H 18 107/62 99 12/08/18 08:15 99 H 19 98/62 L 97 12/08/18 08:00 37.2 C 98 H 20 106/56 L 97 12/08/18 07:45 98 H 25 H 91/48 L 100 12/08/18 07:30 98 H 17 98/55 L 98 12/08/18 07:17 97 H 15 98/57 L 100 12/08/18 06:45 98 H 19 96/53 L 100 12/08/18 06:15 99 H 26 H 92/53 L 100 12/08/18 06:00 100 H 23 96/51 L 98 12/08/18 05:45 99 H 17 89/52 L 94 12/08/18 05:30 96 H 25 H 88/50 L 97 12/08/18 05:15 97 H 19 91/49 L 100 12/08/18 05:00 109 H 23 98/64 L 97 12/08/18 04:45 100 H 18 102/61 100 12/08/18 04:31 102 H 24 115/77 95 12/08/18 04:15 95 H 18 103/61 100 12/08/18 04:00 91 H 17 102/60 100 12/08/18 03:45 94 H 16 98/58 L 100 12/08/18 03:30 99 H 17 109/64 100 12/08/18 03:16 101 H 19 106/62 100 12/08/18 03:00 100 H 17 108/64 100 12/08/18 02:45 93 H 16 103/59 L 100 Laboratory Results Laboratory Results - last 24 hr 12/07/18 12/07/18 12/07/18 16:59 17:05 18:27 WBC RBC Hgb Hct MCV MCH MCHC RDW Std Deviation RDW Coeff of Yudelka Plt Count MPV Immature Gran % (Auto) Neut % (Auto) Lymph % (Auto) [place] % (Auto) Eos % (Auto) Baso % (Auto) Immature Gran # (Auto) Neut # (Auto) Lymph # (Auto) [place] # (Auto) Eos # (Auto) Baso # (Auto) Toxic Vacuolation Dohle Bodies PT 12.1 H INR 1.2 H Sodium Potassium Chloride Carbon Dioxide Anion Gap BUN Creatinine Est Cr Clr Drug Dosing Est GFR ( Amer) Est GFR (Non-Af Amer) BUN/Creatinine Ratio Glucose POC Glucose 133 H Lactate 3.0 H* Calcium Phosphorus Magnesium Total Bilirubin Direct Bilirubin AST ALT Alkaline Phosphatase Total Protein Albumin Stl C. diff Tox B Gene Stl C.difficile Tox A&B 12/07/18 12/07/18 12/08/18 18:40 23:20 04:51 WBC 10.57 RBC 3.03 L Hgb 9.9 L D Hct 29.0 L MCV 95.7 MCH 32.7 MCHC 34.1 RDW Std Deviation 57.0 H RDW Coeff of Yudelka 16.4 H Plt Count 310 MPV 8.9 Immature Gran % (Auto) 6.7 Neut % (Auto) 87.0 Lymph % (Auto) 4.1 [place] % (Auto) 2.1 Eos % (Auto) 0.0 Baso % (Auto) 0.1 Immature Gran # (Auto) 0.71 H Neut # (Auto) 9.20 H Lymph # (Auto) 0.43 L [place] # (Auto) 0.22 Eos # (Auto) 0.00 Baso # (Auto) 0.01 Toxic Vacuolation 1+ Dohle Bodies 2+ PT INR Sodium Potassium Chloride Carbon Dioxide Anion Gap BUN Creatinine Est Cr Clr Drug Dosing Est GFR ( Amer) Est GFR (Non-Af Amer) BUN/Creatinine Ratio Glucose POC Glucose Lactate 2.1 H* Calcium Phosphorus Magnesium Total Bilirubin Direct Bilirubin AST ALT Alkaline Phosphatase Total Protein Albumin Stl C. diff Tox B Gene Positive Cdiff Gene H Stl C.difficile Tox A&B Negative Cdiff Toxin 12/08/18 12/08/18 12/08/18 04:51 04:51 05:56 WBC RBC Hgb Hct MCV MCH MCHC RDW Std Deviation RDW Coeff of Yudelka Plt Count MPV Immature Gran % (Auto) Neut % (Auto) Lymph % (Auto) [place] % (Auto) Eos % (Auto) Baso % (Auto) Immature Gran # (Auto) Neut # (Auto) Lymph # (Auto) [place] # (Auto) Eos # (Auto) Baso # (Auto) Toxic Vacuolation Dohle Bodies PT 11.7 INR 1.2 H Sodium Potassium Chloride Carbon Dioxide Anion Gap BUN Creatinine Est Cr Clr Drug Dosing Est GFR ( Amer) Est GFR (Non-Af Amer) BUN/Creatinine Ratio Glucose POC Glucose 103 H Lactate Calcium Phosphorus 1.7 L D Magnesium 2.1 Total Bilirubin 0.4 Direct Bilirubin 0.2 AST 16 ALT 9 L Alkaline Phosphatase 83 Total Protein 5.6 L Albumin 1.8 L Stl C. diff Tox B Gene Stl C.difficile Tox A&B 12/08/18 12/08/18 08:11 11:53 WBC RBC Hgb Hct MCV MCH MCHC RDW Std Deviation RDW Coeff of Yudelka Plt Count MPV Immature Gran % (Auto) Neut % (Auto) Lymph % (Auto) [place] % (Auto) Eos % (Auto) Baso % (Auto) Immature Gran # (Auto) Neut # (Auto) Lymph # (Auto) [place] # (Auto) Eos # (Auto) Baso # (Auto) Toxic Vacuolation Dohle Bodies PT INR Sodium 141 Potassium 3.8 D Chloride 105 Carbon Dioxide 32 Anion Gap 4.0 BUN 20 H Creatinine 0.34 L D Est Cr Clr Drug Dosing 104.8 Est GFR ( Amer) 122.8 Est GFR (Non-Af Amer) 106.0 BUN/Creatinine Ratio 58.2 H Glucose 94 POC Glucose 93 Lactate Calcium 8.6 Phosphorus Magnesium Total Bilirubin Direct Bilirubin AST ALT Alkaline Phosphatase Total Protein Albumin Stl C. diff Tox B Gene Stl C.difficile Tox A&B Medications Administered Current Inpatient Medications Albuterol (Duoneb) 3 ml NEB Q4R PRN PRN Reason: Shortness Of Breath Stop: 01/06/19 07:59 Albuterol (Ventolin 0.5% 2.5mg/0.5ml) 2.5 mg NEB Q2H PRN PRN Reason: SOB/Wheeze Stop: 01/06/19 06:19 Aztreonam (Aztreonam Consult Active) 1 ea N/A UD PRN PRN Reason: Consult Stop: 01/06/19 16:02 Heparin Sodium (Porcine) (Heparin Sodium (Porcine)) 5,000 units SQ Q12 [facility] Stop: 01/06/19 20:59 Last Admin: 12/08/18 09:20 Dose: 5,000 units Documented by: Norepinephrine Bitartrate 8 mg (/ Dextrose) 508 mls @ 9.37 mls/hr IV .Q24H [facility]; Protocol Stop: 01/06/19 06:14 Last Titration: 12/08/18 10:24 Dose: 0.05 mcg/kg/min, 9.4 mls/hr Documented by: Parenteral Electrolytes (Normosol-R) 1,000 mls @ 75 mls/hr IV .[id number] [facility]IVIER Stop: 01/06/19 08:44 Last Admin: 12/08/18 13:36 Dose: 75 mls/hr Documented by: Methylprednisolone 25 mg/ (Syringe) 0.4 mls @ 1.5 mls/min IV BID [facility] Stop: 01/06/19 20:59 Last Admin: 12/08/18 09:22 Dose: 1.5 mls/min Documented by: Aztreonam 2,000 mg/ Dextrose 110 mls @ 100 mls/hr IV Q8H [facility]; Protocol Stop: 12/18/18 00:00 Last Infusion: 12/08/18 09:19 Dose: Infused Documented by: Thiamine HCl 100 mg/ Syringe 10 mls @ 2 mls/min IV QAM [facility] Stop: 01/08/19 08:59 Azithromycin 250 mg/ Dextrose 252.5 mls @ 126.25 mls/hr IV Q24H [facility] Stop: 12/11/18 17:59 Potassium Phosphate 15 mmol/ (Sodium Chloride) 255 mls @ 102 mls/hr IV ONE ONE Stop: 12/08/18 15:44 Last Admin: 12/08/18 13:36 Dose: 102 mls/hr Documented by: Miscellaneous (Icu Protocol For Hyperglycemia) 1 ea N/A PRN PRN; Protocol PRN Reason: Hyperglycemia Protocol Stop: 12/09/18 04:58 (1) UTI (urinary tract infection) Urinary tract infection type: site unspecified Hematuria presence: without hematuria Qualified Code(s): N39.0 - Urinary tract infection, site not specified (2) COPD (chronic obstructive pulmonary disease) COPD type: unspecified COPD Qualified Code(s): J44.9 - Chronic obstructive pulmonary disease, unspecified
[2018-12-08] MEDS: AZITHROMYCIN 250 MG in DEXTROSE 5% 250 ML IV SCH (16:05)
[2018-12-09] MEDS: AZTREONAM 2,000 MG in DEXTROSE 5% 100 ML IV SCH ×3 (01:37→15:32)
[2018-12-09 04:50] LABS: Basophils # (auto) 0.01 K/uL (0-0.2); Basophils % (auto) 0.1 %; Hematocrit (blood only) 27.9 % (37-47); Hemoglobin 9.3 g/dL (12.0-16.0); Immature Granulocytes # (auto) 0.07 K/uL (0.00-0.02); Immature Granulocytes % (auto) 0.8 %; Lymphocytes % (auto) 5.4 %; Mean Corpuscular Hgb Conc 33.3 g/dL (32-36); Mean Corpuscular Volume 96.5 fL (80-100); Mean Platelet Volume 9.3 fL (7.4-10.4); Monocytes # (auto) 0.17 K/uL (0.11-0.59); Monocytes % (auto) 1.8 %; Neutrophils # (auto) 8.45 K/uL (1.4-6.5); Neutrophils % (auto) 91.9 %; Platelet Count 293 K/uL (130-400); RDW Coefficient of Variation 16.4 % (11.5-14.5); RDW Standard Deviation 58.1 fL (36.4-46.3); Red Blood Count 2.89 M/uL (4.2-5.4)
[2018-12-09 04:59] LABS: INR 1.1 (0.9-1.1)
[2018-12-09 05:18] LABS: Albumin Level 1.5 gm/dl (3.4-5.0); Bilirubin Direct 0.2 mg/dl (0-0.2); Bilirubin,Total 0.4 mg/dl (0.2-1); Magnesium 2.1 mg/dl (1.8-2.4); Phosphorus 1.7 mg/dl (2.5-4.9); Total Protein 5.2 gm/dl (6.4-8.2)
[2018-12-09] MEDS: NORMOSOL-R 1,000 ML IV SCH (06:18)
[2018-12-09] MEDS: NOREPINEPHRINE BIT INJ 8 MG in DEXTROSE 5% 500 ML IV SCH (07:14)
[2018-12-09] MEDS: methylPREDNISolone 25 MG in SYRINGE 0 ML IV SCH ×2 (10:01→20:46)
[2018-12-09] MEDS: HEPARIN SOD 5,000 UNIT/0.5 ML VIAL SQ SCH ×2 (10:01→20:46)
[2018-12-09] MEDS: THIAMINE HCL 100 MG in SYRINGE 9 ML IV SCH (10:01)
--- NOTE | 2018-12-09 10:18 | Critical Care Progress Note ---
Date of Service December 09, 2018 Assessment & Plan (1) Severe sepsis: Reason Critically Ill: Severe sepsis with hypotension and septic shock with community-acquired pneumonia, multifocal pneumonia PLAN: Neuro: CAM ICU: Negative DNR/DNI -Patient alert, but very tired. - No change in mental status Resp: Multifocal pneumonia Aztreonam and azithromycin stop dates entered COPD -Solu-Medrol for severe community-acquired pneumonia x5 days CV: Hypotension: Resolved Elevated troponin -Suspect secondary to sepsis Fluids/Renal: Lactic acid acidosis: Resolved -Thiamine supplementation ID: Severe community-acquired pneumonia Severe sepsis with septic shock -Aztreonam secondary to penicillin allergy -MRSA swab negative discontinue vancomycin -QTC within normal limits azithromycin for atypical coverage GI/Nutrition: Regular diet Severe protein calorie malnutrition -Patient has wanted limited interventions Heme: Leukopenia: Resolved -Suspect secondary to septic process DVT prophylaxis: Heparin 5000 twice daily Endocrine: ICU hyperglycemia protocol Vascular access: Left internal jugular central venous access Code Status: DNR/DNI, Patient is stable for downgrade out of the ICU. Subjective No overnight events, allowed to eat but taking very minimal by mouth. Physical Exam Physical Exam: General: Alert. Cachectic Skin: Warm, dry, Head: Atraumatic Ears, nose, mouth and throat: airway patent Cardiovascular: Normal peripheral perfusion Respiratory: no respiratory distress Gastrointestinal: Non distended Musculoskeletal: No deformity Results & Data Vital Signs (Past 12 Hours) Vital Signs Pulse Resp BP Pulse Ox 12/09/18 09:49 93 H 26 H 102/53 L 94 12/09/18 09:31 77 21 100/53 L 98 12/09/18 09:01 97 H 28 H 91/62 L 95 12/09/18 08:31 67 26 H 97/49 L 99 12/09/18 08:00 70 21 97 12/09/18 07:30 93 H 24 100/54 L 95 12/09/18 07:01 71 23 90/47 L 95 12/08/18 22:16 83 24 82/50 L 97 Laboratory Results 12/09/18 12/09/18 12/09/18 Range/Units 04:34 04:34 04:34 WBC 9.20 (4.8-10.8) K/uL RBC 2.89 L (4.2-5.4) M/uL Hgb 9.3 L (12.0-16.0) g/dL Hct 27.9 L (37-47) % MCV 96.5 (80-100) fL MCH 32.2 (25-34) pg MCHC 33.3 (32-36) g/dL RDW Std Deviation 58.1 H (36.4-46.3) fL RDW Coeff of Yudelka 16.4 H (11.5-14.5) % Plt Count 293 (130-400) K/uL MPV 9.3 (7.4-10.4) fL Immature Gran % (Auto) 0.8 % Neut % (Auto) 91.9 % Lymph % (Auto) 5.4 % [place] % (Auto) 1.8 % Eos % (Auto) 0.0 % Baso % (Auto) 0.1 % Immature Gran # (Auto) 0.07 H (0.00-0.02) K/uL Neut # (Auto) 8.45 H (1.4-6.5) K/uL Lymph # (Auto) 0.50 L (1.2-3.4) K/uL [place] # (Auto) 0.17 (0.11-0.59) K/uL Eos # (Auto) 0.00 (0-0.5) K/uL Baso # (Auto) 0.01 (0-0.2) K/uL PT 11.0 (9.0-12.0) Seconds INR 1.1 (0.9-1.1) POC Glucose (70-99) Phosphorus 1.7 L (2.5-4.9) mg/dl Magnesium 2.1 (1.8-2.4) mg/dl Total Bilirubin 0.4 (0.2-1) mg/dl Direct Bilirubin 0.2 (0-0.2) mg/dl AST 23 (15-37) U/L ALT 9 L (12-78) U/L Alkaline Phosphatase 92 (45-117) U/L Total Protein 5.2 L (6.4-8.2) gm/dl Albumin 1.5 L (3.4-5.0) gm/dl 12/09/18 12/08/18 Range/Units 00:36 11:53 WBC (4.8-10.8) K/uL RBC (4.2-5.4) M/uL Hgb (12.0-16.0) g/dL Hct (37-47) % MCV (80-100) fL MCH (25-34) pg MCHC (32-36) g/dL RDW Std Deviation (36.4-46.3) fL RDW Coeff of Yudelka (11.5-14.5) % Plt Count (130-400) K/uL MPV (7.4-10.4) fL Immature Gran % (Auto) % Neut % (Auto) % Lymph % (Auto) % [place] % (Auto) % Eos % (Auto) % Baso % (Auto) % Immature Gran # (Auto) (0.00-0.02) K/uL Neut # (Auto) (1.4-6.5) K/uL Lymph # (Auto) (1.2-3.4) K/uL [place] # (Auto) (0.11-0.59) K/uL Eos # (Auto) (0-0.5) K/uL Baso # (Auto) (0-0.2) K/uL PT (9.0-12.0) Seconds INR (0.9-1.1) POC Glucose 85 93 (70-99) Phosphorus (2.5-4.9) mg/dl Magnesium (1.8-2.4) mg/dl Total Bilirubin (0.2-1) mg/dl Direct Bilirubin (0-0.2) mg/dl AST (15-37) U/L ALT (12-78) U/L Alkaline Phosphatase (45-117) U/L Total Protein (6.4-8.2) gm/dl Albumin (3.4-5.0) gm/dl
[2018-12-09] MEDS ORDERED: OXYCODONE/ACETAMINOPHEN 5mg/325mg TAB PO STA (10:55)
[2018-12-09] MEDS ORDERED: OXYCODONE HCL IR 5 MG TAB (IMMEDIATE RELEASE) PO PRN (10:55)
[2018-12-09] MEDS: OXYCODONE HCL IR 5 MG TAB (IMMEDIATE RELEASE) PO PRN (11:04)
[2018-12-09] MEDS: AZITHROMYCIN 250 MG in DEXTROSE 5% 250 ML IV SCH (16:40)
--- NOTE | 2018-12-09 17:41 | Hospitalist Progress Note ---
Date of Service December 09, 2018 Assessment & Plan (1) Septic shock: Secondary to multifocal pneumonia, present on admission Was provided with aggressive hydration and low dose Levophed, which is now been tapered off urine output is adequate today blood and sputum cultures with no growth -Blood pressures remain low normal but patient is fairly asymptomatic -Is on IV thiamine for lactic acidosis with septic shock-we will continue for now Foam Tank Laminator transferred patient to the medical floor today (2) Multifocal pneumonia: Patient presently with improved respiratory status, adequate oxygenation on 2 L nasal cannula -Continue Aztreonam due to allergies, Vancomycin was stopped since she was MRSA negative -Continue azithromycin for atypical coverage -Continue Solu Medrol x 5 days for severe CAP -Continue supplemental O2 to keep pulse ox greater than 90% (3) UTI (urinary tract infection): Positive UA at OSH. Patient denies urinary complaints UA with minimal WBC, doubt infection -Nonetheless, aztreonam would likely cover for this (4) Clostridium difficile diarrhea: Stool + c. diff from OSH. Patient denies diarrhea at home At our lab, she was + for the gene but negative for toxin, Vanco PO has been stopped (5) COPD (chronic obstructive pulmonary disease): Initially on BiPAP now on nasal cannula Continues with wheezing -Continue nebs PRN -Smoking cessation counseling -Continue Solu Medrol for the pneumonia (6) Chronic pain: Suspect pain medications/sedative effects as underlying reason for depressed respiratory drive and AMS on initial presentation. Patient on TD Fentanyl, Vicodin and Gabapentin for chronic pain -Sedating medications were on hold for the first several days of admission, now patient with severe lower back pain with radiculopathy -Restart home fentanyl patch 100 mcg -Restart home gabapentin 400 mg p.o. 4 times daily -Continue oxycodone as needed -Continue bowel regimen with docusate -Monitor for excessive sedation-given that patient told me she takes Vicodin more than the prescribed number of times per day, question if she was excessively using it leading to her excessive sedation upon admission (7) DVT prophylaxis: Heparin SQ Lines-left IJ, peripheral IV, Jefferson catheter Disposition-transfer to medical floor, needs continued stay for antibiotics PT/OT consults placed Subjective Patient reports still has a productive cough. She is in a lot of pain in her lower back with radiating pain down her legs bilaterally. This is her chronic pain but she was taken off of her fentanyl patch and also reports she takes gabapentin and hydrocodone at home. Her fentanyl patch had been removed upon admission at the outside hospital. Patient tells me that she takes Vicodin 4 times a day, but when I told her that it is only prescribed to her for 3 times a day as per the [place] drug database, she changed her answer and said "oh, that is right." Review of Systems Review of Systems: All systems reviewed & are unremarkable except as noted in HPI & below Physical Exam Constitutional: + ill appearing, + thin and cooperative Eyes: PERRL, conjunctivae normal, anicteric sclerae ENMT: external ear and nose normal, oropharynx normal Neck: trachea midline, no thyromegaly Respiratory: normal respiratory effort Auscultation: + crackles (At lower and middle lung vargas bilaterally) and + wheezes (Bilateral expiratory) Cardiovascular: RRR, no murmur, no edema Gastrointestinal (Abdomen): normal bowel sounds, soft, nontender, no hepatosplenomegaly Musculoskeletal: Extremities: extremities normal to inspection; no cyanosis and no clubbing Skin: no rashes, warm and dry Neurologic: moves all extremities and awake; no focal motor deficits Psychiatric: Orientation: alert, oriented to person and cooperative Results & Data Vital Signs (Past 12 Hours) Vital Signs Temp Pulse Pulse Resp BP BP Pulse Ox 12/09/18 15:03 36.4 C L 96 H 18 94/57 L 92 12/09/18 09:49 93 H 26 H 102/53 L 94 12/09/18 09:31 77 21 100/53 L 98 12/09/18 09:01 97 H 28 H 91/62 L 95 12/09/18 08:31 67 26 H 97/49 L 99 12/09/18 08:00 70 21 97 12/09/18 07:30 93 H 24 100/54 L 95 12/09/18 07:01 71 23 90/47 L 95 Laboratory Results 12/09/18 12/09/18 12/09/18 Range/Units 04:34 04:34 04:34 WBC 9.20 (4.8-10.8) K/uL RBC 2.89 L (4.2-5.4) M/uL Hgb 9.3 L (12.0-16.0) g/dL Hct 27.9 L (37-47) % MCV 96.5 (80-100) fL MCH 32.2 (25-34) pg MCHC 33.3 (32-36) g/dL RDW Std Deviation 58.1 H (36.4-46.3) fL RDW Coeff of Yudelka 16.4 H (11.5-14.5) % Plt Count 293 (130-400) K/uL MPV 9.3 (7.4-10.4) fL Immature Gran % (Auto) 0.8 % Neut % (Auto) 91.9 % Lymph % (Auto) 5.4 % [place] % (Auto) 1.8 % Eos % (Auto) 0.0 % Baso % (Auto) 0.1 % Immature Gran # (Auto) 0.07 H (0.00-0.02) K/uL Neut # (Auto) 8.45 H (1.4-6.5) K/uL Lymph # (Auto) 0.50 L (1.2-3.4) K/uL [place] # (Auto) 0.17 (0.11-0.59) K/uL Eos # (Auto) 0.00 (0-0.5) K/uL Baso # (Auto) 0.01 (0-0.2) K/uL PT 11.0 (9.0-12.0) Seconds INR 1.1 (0.9-1.1) POC Glucose (70-99) Phosphorus 1.7 L (2.5-4.9) mg/dl Magnesium 2.1 (1.8-2.4) mg/dl Total Bilirubin 0.4 (0.2-1) mg/dl Direct Bilirubin 0.2 (0-0.2) mg/dl AST 23 (15-37) U/L ALT 9 L (12-78) U/L Alkaline Phosphatase 92 (45-117) U/L Total Protein 5.2 L (6.4-8.2) gm/dl Albumin 1.5 L (3.4-5.0) gm/dl 12/09/18 Range/Units 00:36 WBC (4.8-10.8) K/uL RBC (4.2-5.4) M/uL Hgb (12.0-16.0) g/dL Hct (37-47) % MCV (80-100) fL MCH (25-34) pg MCHC (32-36) g/dL RDW Std Deviation (36.4-46.3) fL RDW Coeff of Yudelka (11.5-14.5) % Plt Count (130-400) K/uL MPV (7.4-10.4) fL Immature Gran % (Auto) % Neut % (Auto) % Lymph % (Auto) % [place] % (Auto) % Eos % (Auto) % Baso % (Auto) % Immature Gran # (Auto) (0.00-0.02) K/uL Neut # (Auto) (1.4-6.5) K/uL Lymph # (Auto) (1.2-3.4) K/uL [place] # (Auto) (0.11-0.59) K/uL Eos # (Auto) (0-0.5) K/uL Baso # (Auto) (0-0.2) K/uL PT (9.0-12.0) Seconds INR (0.9-1.1) POC Glucose 85 (70-99) Phosphorus (2.5-4.9) mg/dl Magnesium (1.8-2.4) mg/dl Total Bilirubin (0.2-1) mg/dl Direct Bilirubin (0-0.2) mg/dl AST (15-37) U/L ALT (12-78) U/L Alkaline Phosphatase (45-117) U/L Total Protein (6.4-8.2) gm/dl Albumin (3.4-5.0) gm/dl (1) UTI (urinary tract infection) Hematuria presence: without hematuria Urinary tract infection type: site unspecified Qualified Code(s): N39.0 - Urinary tract infection, site not specified (2) COPD (chronic obstructive pulmonary disease) COPD type: unspecified COPD Qualified Code(s): J44.9 - Chronic obstructive pulmonary disease, unspecified
[2018-12-09] MEDS ORDERED: fentaNYL 100 MCG/HR TDSY TD SCH (18:00)
[2018-12-09] MEDS: DOCUSATE SODIUM 100 MG CAP PO SCH (20:46)
[2018-12-09] MEDS: GABAPENTIN 400 MG CAP PO SCH (20:46)
[2018-12-09] MEDS: POT PHOSPHATE MONOBASIC W/ SOD TAB PO SCH (21:59)
[2018-12-10] MEDS: AZTREONAM 2,000 MG in DEXTROSE 5% 100 ML IV SCH ×3 (00:11→15:31)
[2018-12-10] MEDS: CHECK FENTANYL PATCH PLACEMENT SCH ×3 (00:12→15:36)
[2018-12-10 06:38] LABS: Hematocrit (blood only) 28.5 % (37-47); Hemoglobin 9.3 g/dL (12.0-16.0); Immature Granulocytes # (auto) 0.07 K/uL (0.00-0.02); Immature Granulocytes % (auto) 0.8 %; Lymphocytes # (auto) 0.57 K/uL (1.2-3.4); Lymphocytes % (auto) 6.3 %; Mean Corpuscular Hgb Conc 32.6 g/dL (32-36); Mean Corpuscular Volume 96.3 fL (80-100); Mean Platelet Volume 9.5 fL (7.4-10.4); Monocytes % (auto) 5.6 %; Neutrophils # (auto) 7.85 K/uL (1.4-6.5); Neutrophils % (auto) 87.3 %; Platelet Count 281 K/uL (130-400); RDW Coefficient of Variation 16.6 % (11.5-14.5); Red Blood Count 2.96 M/uL (4.2-5.4); White Blood Count 8.99 K/uL (4.8-10.8)
[2018-12-10 07:12] LABS: Albumin Level 1.6 gm/dl (3.4-5.0); Bilirubin Direct 0.1 mg/dl (0-0.2); Creatinine Clr Calc Pharmacy 127.2 ml/min; Est GFR (African American) 130.9; Magnesium 2.1 mg/dl (1.8-2.4)
[2018-12-10 07:18] LABS: Bilirubin,Total 0.3 mg/dl (0.2-1); Phosphorus 2.7 mg/dl (2.5-4.9)
[2018-12-10] MEDS: HEPARIN SOD 5,000 UNIT/0.5 ML VIAL SQ SCH ×2 (08:44→20:57)
[2018-12-10] MEDS: DOCUSATE SODIUM 100 MG CAP PO SCH ×2 (08:44→20:57)
[2018-12-10] MEDS: THIAMINE HCL 100 MG in SYRINGE 9 ML IV SCH (08:44)
[2018-12-10] MEDS: methylPREDNISolone 25 MG in SYRINGE 0 ML IV SCH ×2 (08:44→20:57)
[2018-12-10] MEDS: POT PHOSPHATE MONOBASIC W/ SOD TAB PO SCH ×4 (08:45→20:57)
[2018-12-10] MEDS: GABAPENTIN 400 MG CAP PO SCH ×4 (08:45→20:57)
[2018-12-10] MEDS ORDERED: AZITHROMYCIN 250 MG TAB PO ONE (16:00)
--- NOTE | 2018-12-10 17:00 | Hospitalist Progress Note ---
Date of Service December 10, 2018 Assessment & Plan (1) Multifocal pneumonia: Patient presently with improved respiratory status, adequate oxygenation on 2 L nasal cannula. - Continue aztreonam due to allergies, vanc was stopped since she was MRSA negative - Switched to ceftriaxone on 12/10 as aztreonam does not cover any Gram(+) bugs - Continue azithromycin for atypical coverage - Continue Solu Medrol x 5 days for severe CAP - Continue supplemental O2 to keep pulse ox greater than 90% (2) Septic shock: Secondary to multifocal pneumonia, present on admission. - Resolved (3) UTI (urinary tract infection): Positive UA at OSH. Patient denies urinary complaints. - UA with minimal WBC, doubt infection - Nonetheless, aztreonam would have covered for this. Aztreonam stopped on 12/10. (4) Clostridium difficile diarrhea: Stool + c. diff from OSH. Patient denies diarrhea at home. - At our lab, she was + for the gene but negative for toxin, vanc PO has been s topped (5) COPD (chronic obstructive pulmonary disease): Initially on BiPAP; now on nasal cannula. - Continue nebs PRN - Smoking cessation counseling - Continue Solu Medrol for the pneumonia (6) Chronic pain: Suspect pain medications/sedative effects as underlying reason for depressed respiratory drive and AMS on initial presentation. Patient on TD Fentanyl, Vicodin and Gabapentin for chronic pain. - Sedating medications were on hold for the first several days of admission, now patient with severe lower back pain with radiculopathy - Restarted home fentanyl patch 100 mcg - Restarted home gabapentin 400 mg p.o. 4 times daily - Continue oxycodone as needed - Continue bowel regimen with docusate (7) DVT prophylaxis: Heparin SQ Subjective Reports being tired and continuing to have some shortness of breath. No major concerns otherwise. Review of Systems Review of Systems: All systems reviewed & are unremarkable except as noted in HPI & below Physical Exam Constitutional: WD/WN, vitals as above Eyes: EOM intact bilaterally; no conjunctival abnormality ENMT: external ear and nose normal, oropharynx normal Neck: trachea midline, no thyromegaly normal visual inspection Respiratory: normal respiratory effort, lungs clear to auscultation no respiratory distress Cardiovascular: RRR, no murmur, no edema Gastrointestinal (Abdomen): Inspection/Auscultation: abdomen normal to inspection; abdomen not distended Musculoskeletal: no cyanosis or clubbing, extremities motor strength 5/5 Skin: no rashes, warm and dry Neurologic: moves all extremities and awake Psychiatric: Orientation: alert, oriented to person and cooperative Results & Data Vital Signs (Past 12 Hours) Vital Signs Temp Pulse Resp BP BP Pulse Ox 12/10/18 15:23 36.6 C 66 16 116/70 97 12/10/18 07:30 36.7 C 16 94/60 L 90 (1) UTI (urinary tract infection) Urinary tract infection type: site unspecified Hematuria presence: without he maturia Qualified Code(s): N39.0 - Urinary tract infection, site not specified (2) COPD (chronic obstructive pulmonary disease) COPD type: unspecified COPD Qualified Code(s): J44.9 - Chronic obstructive pulmonary disease, unspecified
--- NOTE | 2018-12-10 17:16 | Palliative Care Consultation ---
Date of Consultation December 10, 2018 Assessment & Plan (1) Palliative care encounter: This is an ill-appearing 78 year old female who was a hospital transfer from [facility] with hypotension, septic shock r/t PNA which has resolved, and respiratory failure. Patient also has an extensive history of gastric bypass, COPD, PNA and chronic pain related to bulging discs. There is question of the patients compliance with her medication regimen. Her pain medication regimen includes Fentanyl 100 mcg TD, Gabapentin 400 mg po QID, Oxycodone both 5 and 10 mg and Vicodin. Palliative Care was consulted to discuss goals of care. -I met with the patient in her room, Room 418. Patient had just finished working with OT and was tired when I entered the room and was working a little harder to breathe. -Pt expressed that she lives in [facility] (sounds like an independent living community) near [place] near her son, Dereck. She said that she lives with 3 of her friends and her grandson. -She stated that she has [employer] come 8A-4P 5x per week to assist her with cleaning, medications, etc. -She expressed that she is able to bathe herself, eat independently and walk with a walker. -I confirmed that she would be a DNR as listed in the computer and she agreed. -We started to talk about Hospice and utilizing their services and she was not ready to have this conversation. -I think she could benefit from services at home, starting with Home Health and transitioning. Based on her frail presentation and cachexia, I think she could show decline quickly. -I plan to reach out to her son, Dereck, who she did appoint as her medical decision maker in the event she is unable to make decisions independently. -From a pain management standpoint, I would suggest discontinuing one of her Oxycodone, to assess her need over a 24 hour period, currently she has a 5 mg and 10 mg order. -PPS: 30% (2) Septic shock: (3) COPD (chronic obstructive pulmonary disease): COPD type: unspecified COPD Qualified Code(s): J44.9 - Chronic obstructive pulmonary disease, unspecified (4) Chronic pain: Supervising Physician Co-Signing Physician Notes Late entry for exam done on 12/10 Chart reviewed, pr seen and examined, collaborated with MIKEY Kiran PE: pt comfortable at rest, NAD Resp: unlabored at rest on O2 CV: RR, no edema Abd: not distended Ext: well perfused Agree with above note , assessment and plan. Will cont to follow to assist with medical decision making. History of Present Illness Reason for Consultation: goals of care Requesting Physician: Dr. Domínguez Attending Physician: Anton Antonio MD History of Present Illness This is an ill-appearing 78 year old female who was a hospital transfer from [facility] with hypotension, septic shock r/t PNA which has resolved, and respiratory failure. Patient also has an extensive history of gastric bypass, COPD, PNA and chronic pain related to bulging discs. There is question of the patients compliance with her medication regimen. Her pain medication regimen includes Fentanyl 100 mcg TD, Gabapentin 400 mg po QID, Oxycodone both 5 and 10 mg and Vicodin. Palliative Care was consulted to discuss goals of care. Please see A/P for further details. Thank you kindly for involving the palliative care team with this patient. We will continue to assist this patient with decision making. Allergies Allergy/AdvReac Type Severity Reaction Status Date / Time diphenhydramine Allergy Mild HIVES Verified 08/07/09 04:05 Penicillins Allergy Mild HIVES Verified 08/07/09 04:05 Sulfa (Sulfonamide Allergy Unknown Verified 08/07/09 04:05 Antibiotics) morphine AdvReac Mild HALLUCINATI Verified 08/07/09 04:05 ONS Home Medications Home Medications Medication Instructions Recorded Confirmed Type Calcium (Caltrate) 600 mg PO DAILY #0 12/18/08 History Cyanocobalamin (Vitamin B-12 Inj) IM MONTHLY #0 12/18/08 History Multivitamin 1 tab PO DAILY #0 12/18/08 History Zolpidem Tartrate (Ambien *) 5 mg PO HS #0 12/19/08 History Docusate Sodium (Colace *) 100 mg PO BID #0 12/22/08 History OXYCODONE/ACETAMINOPHEN 5MG/325MG PO DIRECTED #0 12/22/08 History (PERCOCET 5MG/325MG) fentanyl 1 patch TRANSDERMAL Q72H 12/09/18 12/09/18 History gabapentin 400 mg PO QID 12/09/18 12/09/18 History hydrocodone-acetaminophen 1 tab PO Q8H PRN 12/09/18 12/09/18 History Patient History Medical History COPD (chronic obstructive pulmonary disease) Neuropathy Peripheral vascular disease Tobacco abuse Vitamin B12 deficiency Surgical History History of cholecystectomy History of gastric bypass History of hip surgery Family History Other Diabetes Social History Communication Ability: Effective Current Living Situation: Other Other Information That Helps Us Care for You: No Feels Safe at Home: Yes Smoking Status: Current every day smoker Cigarettes Per Day: 20 Hx Alcohol Use: No Hx Substance Use: Yes Review of Systems Review of Systems: All systems reviewed & are unremarkable except as noted in HPI & below Pt states she is working harder to breath Physical Exam Constitutional: + ill appearing and + cachectic Eyes: PERRL, conjunctivae normal, anicteric sclerae ENMT: external ear and nose normal, oropharynx normal Neck: trachea midline, no thyromegaly Respiratory: + uses accessory muscles on 3LNC Cardiovascular: RRR, no murmur, no edema Gastrointestinal (Abdomen): normal bowel sounds, soft, nontender, no hepatosplenomegaly Skin: no rashes, warm and dry normal turgor and + ecchymosis Psychiatric: A+Ox3, euthymic affect Lymphatic: no cervical or axillary lymphadenopathy Results & Data Vital Signs (Past 12 Hours) Vital Signs Temp Pulse Resp BP BP Pulse Ox 12/10/18 15:23 36.6 C 66 16 116/70 97 12/10/18 07:30 36.7 C 16 94/60 L 90
[2018-12-10] MEDS: cefTRIAXone SODIUM 1,000 MG in DEXTROSE 5% 50 ML IV SCH (19:31)
[2018-12-11] MEDS: CHECK FENTANYL PATCH PLACEMENT SCH ×3 (00:57→17:40)
[2018-12-11 06:38] LABS: Hematocrit (blood only) 30.4 % (37-47); Hemoglobin 9.9 g/dL (12.0-16.0); Mean Corpuscular Hgb Conc 32.6 g/dL (32-36); Mean Corpuscular Volume 96.2 fL (80-100); Mean Platelet Volume 9.2 fL (7.4-10.4); Platelet Count 239 K/uL (130-400); RDW Coefficient of Variation 16.2 % (11.5-14.5); RDW Standard Deviation 57.2 fL (36.4-46.3); Red Blood Count 3.16 M/uL (4.2-5.4); White Blood Count 6.24 K/uL (4.8-10.8)
[2018-12-11 07:10] LABS: BUN Creatinine Ratio 123.6 (10-20); Blood Urea Nitrogen 20 mg/dl (7-18); Calcium 8.4 mg/dl (8.5-10.1); Carbon Dioxide 34 mmol/L (21-32); Chloride 107 mmol/L (98-107); Creatinine Clr Calc Pharmacy 209.6 ml/min; Est GFR (African American) > 150.0; Est GFR (Non-African American) 133.1; Glucose 78 mg/dl (70-99); Magnesium 2.2 mg/dl (1.8-2.4); Sodium 147 mmol/L (136-145)
[2018-12-11] MEDS: DOCUSATE SODIUM 100 MG CAP PO SCH ×2 (07:57→20:50)
[2018-12-11] MEDS: GABAPENTIN 400 MG CAP PO SCH ×3 (07:58→20:50)
[2018-12-11] MEDS: POT PHOSPHATE MONOBASIC W/ SOD TAB PO SCH ×4 (07:58→20:50)
[2018-12-11] MEDS: HEPARIN SOD 5,000 UNIT/0.5 ML VIAL SQ SCH ×2 (07:59→20:50)
[2018-12-11] MEDS: OXYCODONE HCL IR 5 MG TAB (IMMEDIATE RELEASE) PO PRN (08:03)
[2018-12-11] MEDS: methylPREDNISolone 25 MG in SYRINGE 0 ML IV SCH (08:08)
[2018-12-11] MEDS: THIAMINE HCL 100 MG in SYRINGE 9 ML IV SCH (08:09)
--- NOTE | 2018-12-11 14:57 | Palliative Care Progress Note ---
Date of Service December 11, 2018 Assessment & Plan (1) Palliative care encounter: This is an ill-appearing 78 year old female who was a hospital transfer from [facility] with hypotension, septic shock r/t PNA which has resolved, and respiratory failure. Patient also has an extensive history of gastric bypass, COPD, PNA and chronic pain related to bulging discs. There is question of the patients compliance with her medication regimen. Her pain medication regimen includes Fentanyl 100 mcg TD, Gabapentin 400 mg po QID, Oxycodone both 5 and 10 mg and Vicodin. -I met with the patient in her room, Room 418 with INFORMATION SUPPORT PROJECT MANAGER student Kimber Montes. -No continued discussion regarding Hospice today as based on our conversation yesterday (see consult A/P), we would talk directly with her son, Dereck. -I did reach out to Dereck at but there was no answer or option for VM. -I think she could benefit from services at home, starting with Home Health and transitioning to Hospice, if the patient is not quite ready to be discharged with Hospice services, which she expressed yesterday. -Based on her frail presentation and cachexia, I think she could show decline quickly. -I plan to reach out to her son, Dereck, who she did appoint as her medical decision maker in the event she is unable to make decisions independently. -From a pain management standpoint, I would suggest discontinuing one of her Oxycodone, to assess her need over a 24 hour period, currently she has a 5 mg and 10 mg order. -I also think she could benefit from an intermittent dosing of Roxanol to help with some air hunger and accessory muscle breathing. I do not want to order this until positive contact is held with family. -PPS: 30% (2) Septic shock: (3) COPD (chronic obstructive pulmonary disease): (4) Chronic pain: Subjective Patient is resting upon my entering the room, easily awaken and oriented Patient denies difficulty with breathing, but visibly appears to be diaphragmatically breathing Pt states she ate some food today but continues with decreased appetite and interest of eating She stated that she wanted to go home No family in the room during my visit Review of Systems Review of Systems: Pt states she is tired and has no appetite Physical Exam Constitutional: + ill appearing and + cachectic Eyes: PERRL, conjunctivae normal, anicteric sclerae ENMT: external ear and nose normal, oropharynx normal Neck: trachea midline, no thyromegaly Respiratory: + uses accessory muscles Auscultation: + rhonchi (anterior lobes) Cardiovascular: RRR, no murmur, no edema Gastrointestinal (Abdomen): normal bowel sounds, soft, nontender, no hepatosplenomegaly Skin: no rashes, warm and dry normal turgor and + ecchymosis Psychiatric: A+Ox3, euthymic affect Lymphatic: no cervical or axillary lymphadenopathy Results & Data Vital Signs (Past 12 Hours) Vital Signs Temp Pulse Resp BP Pulse Ox 12/11/18 08:35 36.9 C 79 16 99/61 L 97 (1) COPD (chronic obstructive pulmonary disease) COPD type: unspecified COPD Qualified Code(s): J44.9 - Chronic obstructive pulmonary disease, unspecified
[2018-12-11] MEDS ORDERED: AZITHROMYCIN 250 MG TAB PO ONE (16:00)
--- NOTE | 2018-12-11 16:35 | Hospitalist Progress Note ---
Date of Service December 11, 2018 Assessment & Plan (1) Multifocal pneumonia: Patient presently with improved respiratory status, adequate oxygenation on 2 L nasal cannula. - Continue aztreonam due to allergies, vanc was stopped since she was MRSA negative - Switched to ceftriaxone on 12/10 as aztreonam does not cover any Gram(+) bugs - Continue azithromycin for atypical coverage - Continue Solu Medrol x 5 days for severe CAP - Continue supplemental O2 to keep pulse ox greater than 90% (2) Septic shock: Secondary to multifocal pneumonia, present on admission. - Resolved (3) UTI (urinary tract infection): Positive UA at OSH. Patient denies urinary complaints. - UA with minimal WBC, doubt infection - Nonetheless, aztreonam & ceftriaxone would cover this. (4) Clostridium difficile diarrhea: Stool + c. diff from OSH. Patient denies diarrhea at home. - At our lab, she was + for the gene but negative for toxin, vanc PO has been stopped - Repeated on 12/11 for continued loose stool and being on antibiotics. (5) COPD (chronic obstructive pulmonary disease): Initially on BiPAP; now on nasal cannula. - Continue nebs PRN - Smoking cessation counseling - Continue Solu Medrol for the pneumonia (6) Chronic pain: Suspect pain medications/sedative effects as underlying reason for depressed respiratory drive and AMS on initial presentation. Patient on TD Fentanyl, Vicodin and Gabapentin for chronic pain. - Sedating medications were on hold for the first several days of admission, now patient with severe lower back pain with radiculopathy - Restarted home fentanyl patch 100 mcg -> Switched to 75 mcg for continued sedation. - Restarted home gabapentin 400 mg p.o. 4 times daily - Wisner PRN - Home dose - Continue bowel regimen with docusate (7) DVT prophylaxis: Heparin 5000 units Q12h Subjective Reports being tired, but otherwise no changes. No shortness of breath. Review of Systems Review of Systems: All systems reviewed & are unremarkable except as noted in HPI & below Physical Exam Constitutional: WD/WN, vitals as above Eyes: EOM intact bilaterally; no conjunctival abnormality ENMT: external ear and nose normal, oropharynx normal Neck: trachea midline, no thyromegaly normal visual inspection Respiratory: normal respiratory effort, lungs clear to auscultation no respiratory distress Cardiovascular: RRR, no murmur, no edema Gastrointestinal (Abdomen): Inspection/Auscultation: abdomen normal to inspection; abdomen not distended Musculoskeletal: no cyanosis or clubbing, extremities motor strength 5/5 Skin: no rashes, warm and dry Neurologic: moves all extremities and awake Psychiatric: Orientation: alert, oriented to person and cooperative Results & Data Vital Signs (Past 12 Hours) Vital Signs Temp Pulse Resp BP BP Pulse Ox 12/11/18 15:36 37.0 C 109 H 20 110/66 98 12/11/18 08:35 36.9 C 79 16 99/61 L 97 (1) UTI (urinary tract infection) Urinary tract infection type: site unspecified Hematuria presence: without hematuria Qualified Code(s): N39.0 - Urinary tract infection, site not spe cified (2) COPD (chronic obstructive pulmonary disease) COPD type: unspecified COPD Qualified Code(s): J44.9 - Chronic obstructive pulmonary disease, unspecified
[2018-12-11] MEDS ORDERED: POTASSIUM CHLORIDE PWD 20 MEQ PACK PO STA (16:40)
[2018-12-11] MEDS ORDERED: POTASSIUM CHLORIDE 40 MEQ in SODIUM CHLORIDE 0.45 % 1,000 ML IV SCH (17:00)
[2018-12-11] MEDS: fentaNYL 75 MCG/HR TDSY TD SCH (17:44)
[2018-12-11 20:35] LABS: Cdiff Antigen Positive; Cdiff Toxin A+B Negative Cdiff Toxin (Negative)
[2018-12-11] MEDS: cefTRIAXone SODIUM 1,000 MG in DEXTROSE 5% 50 ML IV SCH (20:48)
[2018-12-11] MEDS: HYDROCODONE/ACETAMOPHEN 5/325MG TAB PO PRN (20:50)
[2018-12-12] MEDS: CHECK FENTANYL PATCH PLACEMENT SCH ×4 (01:05→23:13)
[2018-12-12] MEDS: HYDROCODONE/ACETAMOPHEN 5/325MG TAB PO PRN ×3 (04:26→20:32)
[2018-12-12 07:06] LABS: Hematocrit (blood only) 31.6 % (37-47); Hemoglobin 10.6 g/dL (12.0-16.0); Mean Corpuscular Hgb Conc 33.5 g/dL (32-36); Mean Platelet Volume 9.1 fL (7.4-10.4); Platelet Count 246 K/uL (130-400); RDW Coefficient of Variation 16.6 % (11.5-14.5); RDW Standard Deviation 58.2 fL (36.4-46.3); Red Blood Count 3.29 M/uL (4.2-5.4); White Blood Count 9.65 K/uL (4.8-10.8)
[2018-12-12 07:49] LABS: BUN Creatinine Ratio 95.8 (10-20); Calcium 8.1 mg/dl (8.5-10.1); Creatinine Clr Calc Pharmacy 187.5 ml/min; Est GFR (African American) 148.8; Est GFR (Non-African American) 128.4; Potassium 3.5 mmol/L (3.5-5.1)
[2018-12-12] MEDS: GABAPENTIN 400 MG CAP PO SCH ×3 (09:07→20:33)
[2018-12-12] MEDS: predniSONE 20 MG TAB PO SCH (09:08)
[2018-12-12] MEDS: POT PHOSPHATE MONOBASIC W/ SOD TAB PO SCH ×2 (09:08→13:17)
[2018-12-12] MEDS: HEPARIN SOD 5,000 UNIT/0.5 ML VIAL SQ SCH ×2 (09:28→20:34)
[2018-12-12] MEDS: DOCUSATE SODIUM 100 MG CAP PO SCH ×2 (13:17→20:34)
--- NOTE | 2018-12-12 15:53 | Hospitalist Progress Note ---
Date of Service December 12, 2018 Assessment & Plan (1) Multifocal pneumonia: Patient presently with improved respiratory status, adequate oxygenation on 2 L nasal cannula. - Continue aztreonam due to allergies, vanc was stopped since she was MRSA negative - Switched to ceftriaxone on 12/10 as aztreonam does not cover any Gram(+) bugs - Finished azithromycin for atypical coverage - Continued Solu Medrol x 5 days for severe CAP - Switched to prednisone 20mg on 12/12 - Continue supplemental O2 to keep pulse ox greater than 90% (2) Septic shock: Secondary to multifocal pneumonia, present on admission. - Resolved (3) UTI (urinary tract infection): Positive UA at OSH. Patient denies urinary complaints. - UA with minimal WBC, doubt infection - Nonetheless, aztreonam & ceftriaxone would cover this. (4) Clostridium difficile diarrhea: Stool + c. diff from OSH. Patient denies diarrhea at home. - At our lab, she was + for the gene but negative for toxin, vanc PO has been stopped - Repeated on 12/11 for continued loose stool and being on antibiotics -> Still negative for toxin (5) COPD (chronic obstructive pulmonary disease): Initially on BiPAP; now on nasal cannula. - Continue nebs PRN - Smoking cessation counseling - Continued steroid for the pneumonia (6) Chronic pain: Suspect pain medications/sedative effects as underlying reason for depressed respiratory drive and AMS on initial presentation. Patient on TD Fentanyl, Vicodin and Gabapentin for chronic pain. - Sedating medications were on hold for the first several days of admission, now patient with severe lower back pain with radiculopathy - Restarted home fentanyl patch 100 mcg -> Switched to 75 mcg on 12/12 for continued sedation. - Restarted home gabapentin 400 mg p.o. 4 times daily -> Tapered to TID on 12/12 for continued sedation. - [place] PRN - Home dose - Continue bowel regimen with docusate (7) DVT prophylaxis: Heparin 5000 units Q12h Subjective Still tired, but improving. Review of Systems Review of Systems: All systems reviewed & are unremarkable except as noted in HPI & below Physical Exam Constitutional: WD/WN, vitals as above Eyes: EOM intact bilaterally; no conjunctival abnormality ENMT: external ear and nose normal, oropharynx normal Neck: trachea midline, no thyromegaly normal visual inspection Respiratory: normal respiratory effort, lungs clear to auscultation no respiratory distress Cardiovascular: RRR, no murmur, no edema Gastrointestinal (Abdomen): Inspection/Auscultation: abdomen normal to inspection; abdomen not distended Musculoskeletal: no cyanosis or clubbing, extremities motor strength 5/5 Skin: no rashes, warm and dry Neurologic: moves all extremities and awake Psychiatric: Orientation: alert, oriented to person and cooperative Results & Data Vital Signs (Past 12 Hours) Vital Signs Temp Pulse Resp BP Pulse Ox 12/12/18 08:00 36.8 C 98 H 16 116/70 99 (1) UTI (urinary tract infection) Urinary tract infection type: site unspecified Hematuria presence: without hematuria Qualified Code(s): N39.0 - Urinary tract infection, site not specified (2) COPD (chronic obstructive pulmonary disease) COPD type: unspecified COPD Qualified Code(s): J44.9 - Chronic obstructive pulmonary disease, unspecified
[2018-12-12] MEDS: cefTRIAXone SODIUM 1,000 MG in DEXTROSE 5% 50 ML IV SCH (20:28)
[2018-12-13] MEDS: HYDROCODONE/ACETAMOPHEN 5/325MG TAB PO PRN ×4 (03:20→23:41)
[2018-12-13] MEDS: GABAPENTIN 400 MG CAP PO SCH ×3 (07:52→19:51)
[2018-12-13] MEDS: DOCUSATE SODIUM 100 MG CAP PO SCH ×2 (07:52→19:51)
[2018-12-13] MEDS: predniSONE 20 MG TAB PO SCH (07:52)
[2018-12-13] MEDS: HEPARIN SOD 5,000 UNIT/0.5 ML VIAL SQ SCH ×2 (07:53→19:50)
[2018-12-13] MEDS: CHECK FENTANYL PATCH PLACEMENT SCH ×3 (07:53→23:35)
[2018-12-13 08:31] LABS: BUN Creatinine Ratio 93.9 (10-20); Blood Urea Nitrogen 16 mg/dl (7-18); Calcium 8.5 mg/dl (8.5-10.1); Carbon Dioxide 33 mmol/L (21-32); Chloride 108 mmol/L (98-107); Creatinine Clr Calc Pharmacy 209.6 ml/min; Est GFR (African American) > 150.0; Est GFR (Non-African American) 133.1; Glucose 67 mg/dl (70-99); Sodium 146 mmol/L (136-145)
--- NOTE | 2018-12-13 15:19 | Palliative Care Progress Note ---
Date of Service December 13, 2018 Assessment & Plan (1) Palliative care encounter: This is an ill-appearing 78 year old female who was a hospital transfer from [facility] with hypotension, septic shock r/t PNA which has resolved, and respiratory failure. Patient also has an extensive history of gastric bypass, COPD, PNA and chronic pain related to bulging discs. There is question of the patients compliance with her medication regimen. Her pain medication regimen includes Fentanyl 100 mcg TD, Gabapentin 400 mg po QID, Oxycodone both 5 and 10 mg and Vicodin. -I met with the patient in her room, Room 418 with [employer] student Kimber Montes. -No continued discussion regarding Hospice today as based on our conversation yesterday (see consult A/P), we would talk directly with her son, Dereck. -I did reach out to Dereck at and even the patients sister, Bella today but there was no answer or option for VM on either number. -I think she could benefit from services at home, starting with Home Health and transitioning to Hospice, if the patient is not quite ready to be discharged with Hospice services, which she expressed yesterday. -Another option that could be beneficial post discussion with the patients family is a SNF, although would depend on Pt/OT ulises. -Based on her frail presentation and cachexia, I think she could show decline quickly. -Patient is showing increased lethargy and interest in getting out of bed, eating, etc. -Patient currently on Fentanyl patch 75mcg and [place] tab PRN. She has taken 3 doses over past 24 hours. PRN Oxycodone has been discontinued. -We will continue to follow through her hospitalization and continue to make po sitive contact with family to discuss goals and complete a POLST form. -PPS: 30% (2) Septic shock: (3) COPD (chronic obstructive pulmonary disease): (4) Chronic pain: Subjective Patient is resting upon my entering the room, easily awaken and oriented Patient denies difficulty with breathing. She is asking when she will be able to return home. Pt states she ate some food today but continues with decreased appetite and interest of eating No family in the room during my visit See A/P for further details. Review of Systems Review of Systems: Pt states she is tired and has no appetite Pt denies pain Physical Exam Constitutional: + ill appearing and + cachectic Eyes: PERRL, conjunctivae normal, anicteric sclerae ENMT: external ear and nose normal, oropharynx normal Neck: trachea midline, no thyromegaly Respiratory: normal respiratory effort, lungs clear to auscultation does not use accessory muscles Auscultation: + rhonchi (anterior lobes) Cardiovascular: RRR, no murmur, no edema Gastrointestinal (Abdomen): normal bowel sounds, soft, nontender, no hepatosplenomegaly Skin: no rashes, warm and dry normal turgor and + ecchymosis Psychiatric: A+Ox3, euthymic affect Lymphatic: no cervical or axillary lymphadenopathy Results & Data Vital Signs (Past 12 Hours) Vital Signs Temp Pulse Resp BP Pulse Ox 12/13/18 08:10 36.6 C 90 18 106/60 100 Time Spent Midlevel Total time spent 25 minutes with > 50% of that time spent assessing the patient and discussing plans with IDT. (1) COPD (chronic obstructive pulmonary disease) COPD type: unspecified COPD Qualified Code(s): J44.9 - Chronic obstructive pulmonary disease, unspecified
--- NOTE | 2018-12-13 15:47 | Hospitalist Progress Note ---
Date of Service December 13, 2018 Assessment & Plan (1) Multifocal pneumonia: Patient presently with improved respiratory status, adequate oxygenation on 2 L nasal cannula. - Continue aztreonam due to allergies, vanc was stopped since she was MRSA negative - Switched to ceftriaxone on 12/10 as aztreonam does not cover any Gram(+) bugs - Finished azithromycin for atypical coverage - Continued Solu Medrol x 5 days for severe CAP - Switched to prednisone 20mg on 12/12 -> Will stop on 12/15 - Continue supplemental O2 to keep pulse ox greater than 90% (2) Septic shock: Secondary to multifocal pneumonia, present on admission. - Resolved (3) UTI (urinary tract infection): Positive UA at OSH. Patient denies urinary complaints. - UA with minimal WBC, doubt infection - Nonetheless, aztreonam & ceftriaxone would cover this. (4) Clostridium difficile diarrhea: Stool + c. diff from OSH. Patient denies diarrhea at home. - At our lab, she was + for the gene but negative for toxin, vanc PO has been stopped - Repeated on 12/11 for continued loose stool and being on antibiotics -> Still negative for toxin (5) COPD (chronic obstructive pulmonary disease): Initially on BiPAP; now on nasal cannula. - Continue nebs PRN - Smoking cessation counseling - Continued steroid for the pneumonia (6) Chronic pain: Suspect pain medications/sedative effects as underlying reason for depressed respiratory drive and AMS on initial presentation. Patient on TD F entanyl, Vicodin and Gabapentin for chronic pain. - Sedating medications were on hold for the first several days of admission, now patient with severe lower back pain with radiculopathy - Restarted home fentanyl patch 100 mcg -> Switched to 75 mcg on 12/12 for continued sedation. - Restarted home gabapentin 400 mg p.o. 4 times daily -> Tapered to TID on 12/12 for continued sedation. - [place] PRN - Home dose - Continue bowel regimen with docusate - By 12/13, she is much more awake and arousable. Often has eyes closed, but wakes up quickly and easily and is oriented. Will continue present dosing. (7) DVT prophylaxis: Heparin 5000 units Q12h Subjective Feeling some better today. Easily arousable. Review of Systems Review of Systems: All systems reviewed & are unremarkable except as noted in HPI & below Physical Exam Constitutional: WD/WN, vitals as above Eyes: EOM intact bilaterally; no conjunctival abnormality ENMT: external ear and nose normal, oropharynx normal Neck: trachea midline, no thyromegaly normal visual inspection Respiratory: normal respiratory effort, lungs clear to auscultation no respiratory distress Cardiovascular: RRR, no murmur, no edema Gastrointestinal (Abdomen): Inspection/Auscultation: abdomen normal to inspection; abdomen not distended Musculoskeletal: no cyanosis or clubbing, extremities motor strength 5/5 Skin: no rashes, warm and dry Neurologic: moves all extremities and awake Psychiatric: Orientation: alert, oriented to person and cooperative Results & Data Vital Signs (Past 12 Hours) Vital Signs Temp Pulse Resp BP Pulse Ox 12/13/18 08:10 36.6 C 90 18 106/60 100 PG Care Time/CCT Total # of Minutes Spent Total Time Spent with Patient: Total time spent is greater than 50% in coordination of care (as documented) at patient's floor/unit and/or counseling patient: (1) UTI (urinary tract infection) Urinary tract infection type: site unspecified Hematuria presence: without hematuria Qualified Code(s): N39.0 - Urinary tract infection, site not specified (2) COPD (chronic obstructive pulmonary disease) COPD type: unspecified COPD Qualified Code(s): J44.9 - Chronic obstructive pulmonary disease, unspecified
[2018-12-13] MEDS: cefTRIAXone SODIUM 1,000 MG in DEXTROSE 5% 50 ML IV SCH (19:50)
[2018-12-14] MEDS: HYDROCODONE/ACETAMOPHEN 5/325MG TAB PO PRN ×3 (06:35→18:31)
[2018-12-14 07:49] LABS: BUN Creatinine Ratio 80.1 (10-20); Blood Urea Nitrogen 14 mg/dl (7-18); Calcium 8.5 mg/dl (8.5-10.1); Carbon Dioxide 36 mmol/L (21-32); Chloride 105 mmol/L (98-107); Creatinine Clr Calc Pharmacy 197.9 ml/min; Est GFR (African American) > 150.0; Est GFR (Non-African American) 130.7; Glucose 72 mg/dl (70-99); Sodium 144 mmol/L (136-145)
[2018-12-14] MEDS: GABAPENTIN 400 MG CAP PO SCH ×3 (09:28→20:39)
[2018-12-14] MEDS: CHECK FENTANYL PATCH PLACEMENT SCH ×2 (09:29→17:40)
[2018-12-14] MEDS: DOCUSATE SODIUM 100 MG CAP PO SCH ×2 (09:29→20:42)
[2018-12-14] MEDS: predniSONE 20 MG TAB PO SCH (09:29)
[2018-12-14] MEDS: HEPARIN SOD 5,000 UNIT/0.5 ML VIAL SQ SCH ×2 (09:30→20:38)
--- NOTE | 2018-12-14 15:09 | Hospitalist Progress Note ---
Date of Service December 14, 2018 Assessment & Plan (1) Multifocal pneumonia: Patient presently with improved respiratory status, adequate oxygenation on 2 L nasal cannula. - Continue aztreonam due to allergies, vanc was stopped since she was MRSA negative - Switched to ceftriaxone on 12/10 as aztreonam does not cover any Gram(+) bugs - Finished azithromycin for atypical coverage - Continued Solu Medrol x 5 days for severe CAP - Switched to prednisone 20mg on 12/12 -> Will stop on 12/15 - Continue supplemental O2 to keep pulse ox greater than 90% -> Presently able to be on room air when resting, but desats with exertion. (2) Septic shock: Secondary to multifocal pneumonia, present on admission. - Resolved (3) UTI (urinary tract infection): Positive UA at OSH. Patient denies urinary complaints. - UA with minimal WBC, doubt infection - Nonetheless, aztreonam & ceftriaxone would cover this. (4) Clostridium difficile diarrhea: Stool + c. diff from OSH. Patient denies diarrhea at home. - At our lab, she was + for the gene but negative for toxin, vanc PO has been stopped - Repeated on 12/11 for continued loose stool and being on antibiotics -> Still negative for toxin (5) COPD (chronic obstructive pulmonary disease): Initially on BiPAP; now on room air. - Continue nebs PRN - Smoking cessation counseling - Continued steroid for the pneumonia (6) Chronic pain: Suspect pain medications/sedative effects as underlying reason for depre ssed respiratory drive and AMS on initial presentation. Patient on TD Fentanyl, Vicodin and Gabapentin for chronic pain. - Sedating medications were on hold for the first several days of admission, now patient with severe lower back pain with radiculopathy - Restarted home fentanyl patch 100 mcg -> Switched to 75 mcg on 12/12 for continued sedation. - Restarted home gabapentin 400 mg p.o. 4 times daily -> Tapered to TID on 12/12 for continued sedation. - [place] PRN - Home dose - Continue bowel regimen with docusate - By 12/13, she is much more awake and arousable. Often has eyes closed, but w akes up quickly and easily and is oriented. Will continue present dosing. (7) DVT prophylaxis: Heparin 5000 units Q12h Subjective Patient starts the conversation with "I ain't going to rehab." Otherwise, she states she is fine. Review of Systems Review of Systems: All systems reviewed & are unremarkable except as noted in HPI & below Physical Exam Constitutional: WD/WN, vitals as above Eyes: EOM intact bilaterally; no conjunctival abnormality ENMT: external ear and nose normal, oropharynx normal Neck: trachea midline, no thyromegaly normal visual inspection Respiratory: normal respiratory effort, lungs clear to auscultation no respiratory distress Cardiovascular: RRR, no murmur, no edema Gastrointestinal (Abdomen): Inspection/Auscultation: abdomen normal to inspection; abdomen not distended Musculoskeletal: no cyanosis or clubbing, extremities motor strength 5/5 Skin: no rashes, warm and dry Neurologic: moves all extremities and awake Psychiatric: Orientation: alert, oriented to person and cooperative Results & Data Vital Signs (Past 12 Hours) Vital Signs Temp Pulse Resp BP Pulse Ox 12/14/18 06:56 36.8 C 86 18 105/65 100 PG Care Time/CCT Total # of Minutes Spent Total Time Spent with Patient: Total time spent is greater than 50% in coordination of care (as documented) at patient's floor/unit and/or counseling patient: (1) UTI (urinary tract infection) Urinary tract infection type: site unspecified Hematuria presence: without hematuria Qualified Code(s): N39.0 - Urinary tract infection, site not specified (2) COPD (chronic obstructive pulmonary disease) COPD type: unspecified COPD Qualified Code(s): J44.9 - Chronic obstructive pulmonary disease, unspecified
[2018-12-14] MEDS: fentaNYL 75 MCG/HR TDSY TD SCH (17:40)
[2018-12-14] MEDS: cefTRIAXone SODIUM 1,000 MG in DEXTROSE 5% 50 ML IV SCH (20:37)
[2018-12-15] MEDS: CHECK FENTANYL PATCH PLACEMENT SCH ×3 (00:07→16:01)
[2018-12-15] MEDS: HYDROCODONE/ACETAMOPHEN 5/325MG TAB PO PRN ×2 (08:10→14:41)
[2018-12-15] MEDS: GABAPENTIN 400 MG CAP PO SCH ×2 (08:24→14:41)
[2018-12-15] MEDS: predniSONE 20 MG TAB PO SCH (08:24)
[2018-12-15] MEDS: DOCUSATE SODIUM 100 MG CAP PO SCH (08:26)
[2018-12-15] MEDS: HEPARIN SOD 5,000 UNIT/0.5 ML VIAL SQ SCH (08:27)
--- NOTE | 2018-12-15 14:05 | Discharge Summary ---
Date of Service December 15, 2018 Admission HPI Per Admitting Provider Nubia Dolan is a 78yo C female brought into [facility] for respiratory failure and unresponsiveness. Patient with history of gastric bypass, COPD, chronic pain on high doses of opiates. Per report, respiratory rate was 4 and her pupils were pinpoint. She was administered 2mg of Narcan and then 2mg IV with improvement in respiratory rate. Upon arrival to OSH she was tachycardic, initially hemodynamically stable. CT of the chest suggestive of multifocal pneumonia. CT scan of the head was negative. She was found to have a UTI as well as c. diff. Overall patient states she is feeling well. She does not know why she is in the hospital. She denies fevers, chills, SOB, abdominal pain, nausea, vomiting, diarrhea or constipation OSH Course: Lasix 60mg IV with diuresis of 800mL, Xopenex, Prednisolone 125mg, BiPAP with improvement in mental status, Rocephin 2gm and FLagyl, Vancomycin, Aztreonam. Subsequent development of hypotension and started on Levophed. EKG with ST, no acute ischemic changes Labs from OSH H/H=11.5/36.5, WBC=6.9, UA+, CQR=[id number], Lactate=4/2 --> 3.4 Principal Diagnosis Pneumonia Discharge Exam Constitutional WD/WN, vitals as above Eyes EOM intact bilaterally; no conjunctival abnormality ENMT external ear and nose normal, oropharynx normal Neck trachea midline, no thyromegaly normal visual inspection Respiratory normal respiratory effort, lungs clear to auscultation no respiratory distress Cardiovascular RRR, no murmur, no edema Gastrointestinal (Abdomen) Inspection/Auscultation: abdomen normal to inspection; abdomen not distended Musculoskeletal no cyanosis or clubbing, extremities motor strength 5/5 Skin no rashes, warm and dry Neurologic moves all extremities and awake Psychiatric Orientation: alert, oriented to person and cooperative Discharge Data Allergies Allergy/AdvReac Type Severity Reaction Status Date / Time diphenhydramine Allergy Mild HIVES Verified 08/07/09 04:05 Penicillins Allergy Mild HIVES Verified 08/07/09 04:05 Sulfa (Sulfonamide Allergy Unknown Verified 08/07/09 04:05 Antibiotics) morphine AdvReac Mild HALLUCINATI Verified 08/07/09 04:05 ONS Consultations 12/07/18 05:00 Consult Case Management - Discharge Planning Routine Consult Division Supervisor Routine 12/09/18 16:41 Consult Palliative Care Routine Ordered Studies 12/07/18 21:34 US point of care ultrasound Routine Hospital Course (1) Multifocal pneumonia: Patient presently with improved respiratory status, adequate oxygenation on 2 L nasal cannula. - Finished abx in the hospital - Finished azithromycin for atypical coverage - Switched to prednisone 20mg on 12/12 -> Stopped on 12/15 (2) Septic shock: Secondary to multifocal pneumonia, present on admission. - Resolved (3) UTI (urinary tract infection): Positive UA at OSH. Patient denies urinary complaints. - UA with minimal WBC, doubt infection - Nonetheless, aztreonam & ceftriaxone covered this. (4) Clostridium difficile diarrhea: Stool + c. diff from OSH. Patient denies diarrhea at home. - At our lab, she was + for the gene but negative for toxin, vanc PO has been stopped - Repeated on 12/11 for continued loose stool and being on antibiotics -> Still negative for toxin (5) COPD (chronic obstructive pulmonary disease): Initially on BiPAP; now on room air. - Continue nebs PRN - Smoking cessation counseling - Continued steroid for the pneumonia (6) Chronic pain: Suspect pain medications/sedative effects as underlying reason for depressed respiratory drive and AMS on initial presentation. Patient on TD Fentanyl, Vicodin and Gabapentin for chronic pain. - Sedating medications were on hold for the first several days of admission, now patient with severe lower back pain with radiculopathy - Restarted home fentanyl patch 100 mcg -> Switched to 75 mcg on 12/12 for continued sedation. - Restarted home gabapentin 400 mg p.o. 4 times daily -> Tapered to TID on 12/12 for continued sedation. - [place] PRN - Home dose - Continue bowel regimen with docusate - By 12/13, she is much more awake and arousable. Often has eyes closed, but wakes up quickly and easily and is oriented. Recommended tapering dosing on discharge. (7) DVT prophylaxis: Heparin 5000 units Q12h Total Time Total Time Spent Total Time Spent (In Minutes): 35 Total Time Includes: Examination of the Patient and Discharge Planning Discharge Plan Discharge Items Patient Disposition: Home - Home Health Services Reason For Visit: MULTI FOCAL PNEUMONIA, SEPTIC SHOCK Discharge Diagnosis: Multifocal pneumonia Discharge Goals: Improve disease control, Improve function and Increase independence Activity: Resume your previous activity Exercise/Sports: Gradually increase as tolerated Non-emergency contact: Primary Care Provider Call non-emergency contact if: your symptoms worsen and your pain is not controlled Follow-up/Referrals: Mike Dietz DO [Primary Care Provider] - Diet: Regular Addtl Provider Instructions: Ms. Dolan was admitted to the hospital for pneumonia. She was in the ICU for several days, but was able to be transitioned to a normal floor after. She was off all oxygen at discharge. She finished her antibiotic course prior to discharge, as well as a course of steroids. She should continue her home medications, though we lowered all her opiate medications while in the hospital. She should see Dr. Dietz when able to help taper down her opiate medications. We had her on a 75 mcg fentanyl patch. I did not feel comfortable providing a script for further opiates, so she should be encouraged to see Dr. Dietz for a further opiate script for the lower dosage. We recommended she stay at a rehab center for awhile to help improve her strength, but she refused and preferred to go home. Prescriptions: Continued Calcium (Caltrate) 600 MG tablet 600 mg PO DAILY Qty: 0 RF: 0 Cyanocobalamin (Vitamin B-12 Inj) INJECTION IM MONTHLY Qty: 0 RF: 0 Multivitamin tablet 1 tab PO DAILY Qty: 0 RF: 0 Docusate Sodium (Colace *) 100 MG capsule 100 mg PO BID Qty: 0 RF: 0 fentanyl 100 mcg/hr Patch 72 Hour 1 patch TRANSDERMAL Q72H RF: 0 hydrocodone-acetaminophen 5-325 mg Tablet 1 tab PO Q8H PRN (Reason: Pain) RF: 0 Changed gabapentin 400 mg Capsule 400 mg PO BID Qty: 0 RF: 0 Discontinued Zolpidem Tartrate (Ambien *) 5 MG tablet 5 mg PO HS Qty: 0 RF: 0 OXYCODONE/ACETAMINOPHEN 5MG/325MG (PERCOCET 5MG/325MG) tablet PO DIRECTED Qty: 0 RF: 0 Stand-Alone Forms: [facility] Discharge Orders: Discharge Order (Routine); Ordered 12/15/18 Ordered By: Anton Antonio Admission Data Admit Date/Time: 12/07/18 04:52 Attending Provider: Anton Antonio Admit Provider: Lubna Spencer Primary Care Provider: Mike Dietz Other Providers: Yefri Aranda ; Brenda Gonzales Service: Medical Other Interventions: Discharge Summary Assessment (RN) Last Done: 12/15/18 14:00
== END 2018-12-15 20:06 | disposition home health service (06) | DRG 871 ==
LOC: SUATTDRO 04:52 → 1E 04:52 → 4E 12-09 10:19